=== PATIENT | male | born 1975 | race Caucasian/White ===

== ENCOUNTER 2017-02-12 05:23 | Inpatient (IN) | payer MEDICAID ==
[~2017-02-12] VITALS: Ht 175.3 cm; Wt 93.3 kg
[~2017-02-12 05:23] MED LIST: PYRI200T4 PO; SULF1TAB47 PO; Z.0.NO CURRENT MEDS
[2017-02-12] MEDS ORDERED: POVIDONE IODINE 5% (ANTISEPSIS KIT) 4 APPLICATIONS EACH NARE PRN (06:30)
[2017-02-12] MEDS ORDERED: LACTATED RINGER'S 1000 ML IV PRN (06:30)
[2017-02-12] MEDS ORDERED: CHLORHEXIDINE GLUCONATE 4% SOLN 120 ML BTL TOPICAL SCH (06:30)
[2017-02-12] MEDS ORDERED: METOPROLOL TARTRATE 25 MG TAB PO PRN (06:30)
[2017-02-12] MEDS ORDERED: CHLORHEXIDINE GLUCONATE 2 % 1 PACK (2 CLOTHS) TOPICAL PRN (06:30)
[2017-02-12] MEDS ORDERED: ceFAZolin 2 GM PREMIX 50 ML IV SCH (06:30)
[2017-02-12] MEDS ORDERED: INSULIN HUMAN REGULAR 1,000 UNITS/10 ML VIAL SQ PRN (06:30)
[2017-02-12] MEDS ORDERED: SODIUM CHLORID 0.9% 500 ML IV PRN (06:30)
[2017-02-12] MEDS ORDERED: ACETAMINOPHEN 1000 MG/100 ML 100 ML IV ONE (06:56)
[2017-02-12] MEDS ORDERED: FAMOTIDINE 20 MG/2 ML VIAL ONE (06:56)
[2017-02-12] MEDS ORDERED: GENTAMICIN SULFATE 80 MG/2 ML VIAL ONE (07:00)
[2017-02-12] MEDS ORDERED: SODIUM CHLOR 0.9% 250 ML INJ 250 ML ONE (07:16)
[2017-02-12] MEDS ORDERED: VANCOMYCIN HCL 1000 MG VIAL ONE (07:17)
[2017-02-12] MEDS ORDERED: MELA5TAB15 PO (07:19)
[2017-02-12] MEDS ORDERED: HYDR-3583 PO (07:19)
[2017-02-12] MEDS ORDERED: MILKSUS PO (07:19)
[2017-02-12] MEDS ORDERED: SENN1TAB PO (07:19)
[2017-02-12] MEDS ORDERED: XARE10TA PO (07:19)
[2017-02-12] MEDS ORDERED: BACITRACIN TOP OINT 15 GM TUBE ONE (08:31)
--- NOTE | 2017-02-12 08:41 | PD.OP ---
cc: Reynaldo Hicks MD Operative Report Date of Surgery: Feb 12, 2017 Preoperative Diagnosis: Comminuted open right calcaneus fracture Postoperative Diagnosis: Procedure: Irrigation and debridement of right foot, open reduction internal fixation right calcaneus, application wound VAC dressing Anesthesia: Gen. Surgeon: Reynaldo Hicks Early [employer] Director(s): DAHIANA Ross PA-C The surgical procedure was assisted by my physician media center assistant. My P.A. presence was necessary throughout this case for the manipulation and positioning of the surgical extremity. My P.A. was assisting me throughout the duration of this procedure. The skill set of a physician media center assistant was medically necessary to complete this procedure. During the surgical case the injection maintenance technician was working at the back table and the physician media center assistant was directly assisting me. Operation and Findings: Informed consent obtained, operative site was marked. The foot and ankle were seen and evaluated this morning. Soft tissue swelling had improved, but patient had an area of necrotic skin over the medial ankle in the middle of the traumatic laceration. He was brought to the operating room and placed on the operating room table. He was given intravenous sedation, general endotracheal anesthesia. He received IV antibiotics and was placed in the prone position. Foot and leg were prepped with alcohol, followed by Hibiclens, draped in usual sterile fashion. A time out procedure was preformed. Procedure began with debridement of the right foot. Full-thickness tissue was elevated. Skin subcutaneous tissue and fascia were sharply debrided with scalpel and rongeur. All necrotic tissue was debrided. Wound was now thoroughly irrigated with 3 L of sterile saline. Next attention was turned to the calcaneus fracture. Because of the nature of the soft tissue wound an open approach was not a viable option. Patient had severely comminuted calcaneus fracture with significant injury to the posterior facet articular surface. At this point a large Steinmann pin was placed into the talus and a second Steinmann pin was placed into the tuberosity of the calcaneus. A laminar litigation secretary was now used to distract the posterior tuberosity. A Shands pin was placed to help joystick the mold filling operator tuberosity into appropriate position. Because of the comminuted nature of the fracture as well as the severe soft tissue injury, anatomic reduction of the posterior facet is not obtainable. Multiple K-wires result provisional fixation. At this point attention was turned to internal fixation. 3 percutaneous incisions were made along the posterior fragment. 4.5 cortical screws were used. 2 screws were placed through the posterior tuberosity into the body of the talus. An additional screw was placed from the posterior tuberosity into the anterior process of the calcaneus. Fluoroscopy confirmed appropriate placement of hardware with reasonable alignment of the calcaneus. Skin was now closed with 3-0 nylon. Next attention was turned to wound VAC dressing. The open wound was covered with a VAC dressing. The wound was sealed appropriately. Patient's placed into a well molded well-padded splint. The patient was transferred to the Recovery Room in stable condition. Reynaldo Hicks MD Feb 12, 2017 08:41
--- NOTE | 2017-02-12 08:41 | PD.OP ---
cc: Reynaldo Hicks MD Operative Report Date of Surgery: Feb 12, 2017 Preoperative Diagnosis: Comminuted open right calcaneus fracture Postoperative Diagnosis: Procedure: Irrigation and debridement of right foot, open reduction internal fixation right calcaneus, application wound VAC dressing Anesthesia: Gen. Surgeon: Reynaldo Hicks [employer] Social [employer] Teacher(s): DAHIANA Ross PA-C The surgical procedure was assisted by my physician bioinformatics assistant. My P.A. presence was necessary throughout this case for the manipulation and positioning of the surgical extremity. My P.A. was assisting me throughout the duration of this procedure. The skill set of a physician bioinformatics assistant was medically necessary to complete this procedure. During the surgical case the surgical sales representative was working at the back table and the physician bioinformatics assistant was directly assisting me. Operation and Findings: Informed consent obtained, operative site was marked. The foot and ankle were seen and evaluated this morning. Soft tissue swelling had improved, but patient had an area of necrotic skin over the medial ankle in the middle of the traumatic laceration. He was brought to the operating room and placed on the operating room table. He was given intravenous sedation, general endotracheal anesthesia. He received IV antibiotics and was placed in the prone position. Foot and leg were prepped with alcohol, followed by Hibiclens, draped in usual sterile fashion. A time out procedure was preformed. Procedure began with debridement of the right foot. Full-thickness tissue was elevated. Skin subcutaneous tissue and fascia were sharply debrided with scalpel and rongeur. All necrotic tissue was debrided. Wound was now thoroughly irrigated with 3 L of sterile saline. Next attention was turned to the calcaneus fracture. Because of the nature of the soft tissue wound an open approach was not a viable option. Patient had severely comminuted calcaneus fracture with significant injury to the posterior facet articular surface. At this point a large Steinmann pin was placed into the talus and a second Steinmann pin was placed into the tuberosity of the calcaneus. A laminar sustainability purchasing agent was now used to distract the posterior tuberosity. A Shands pin was placed to help joystick the rn informatics tuberosity into appropriate position. Because of the comminuted nature of the fracture as well as the severe soft tissue injury, anatomic reduction of the posterior facet is not obtainable. Multiple K-wires result provisional fixation. At this point attention was turned to internal fixation. 3 percutaneous incisions were made along the posterior fragment. 4.5 cortical screws were used. 2 screws were placed through the posterior tuberosity into the body of the talus. An additional screw was placed from the posterior tuberosity into the anterior process of the calcaneus. Fluoroscopy confirmed appropriate placement of hardware with reasonable alignment of the calcaneus. Skin was now closed with 3-0 nylon. Next attention was turned to wound VAC dressing. The open wound was covered with a VAC dressing. The wound was sealed appropriately. Patient's placed into a well molded well-padded splint. The patient was transferred to the Recovery Room in stable condition. Reynaldo Hicks MD Feb 12, 2017 08:41
--- NOTE | 2017-02-12 08:41 | PD.OP ---
cc: Reynaldo Hicks MD Operative Report Date of Surgery: Feb 12, 2017 Preoperative Diagnosis: Comminuted open right calcaneus fracture Postoperative Diagnosis: Procedure: Irrigation and debridement of right foot, open reduction internal fixation right calcaneus, application wound VAC dressing Anesthesia: Gen. Surgeon: Reynaldo Hicks Zipper Sewing Machine Operator(s): DAHIANA Ross PA-C The surgical procedure was assisted by my physician urgent care physician assistant. My P.A. presence was necessary throughout this case for the manipulation and positioning of the surgical extremity. My P.A. was assisting me throughout the duration of this procedure. The skill set of a physician urgent care physician assistant was medically necessary to complete this procedure. During the surgical case the manager surgical was working at the back table and the physician urgent care physician assistant was directly assisting me. Operation and Findings: Informed consent obtained, operative site was marked. The foot and ankle were seen and evaluated this morning. Soft tissue swelling had improved, but patient had an area of necrotic skin over the medial ankle in the middle of the traumatic laceration. He was brought to the operating room and placed on the operating room table. He was given intravenous sedation, general endotracheal anesthesia. He received IV antibiotics and was placed in the prone position. Foot and leg were prepped with alcohol, followed by Hibiclens, draped in usual sterile fashion. A time out procedure was preformed. Procedure began with debridement of the right foot. Full-thickness tissue was elevated. Skin subcutaneous tissue and fascia were sharply debrided with scalpel and rongeur. All necrotic tissue was debrided. Wound was now thoroughly irrigated with 3 L of sterile saline. Next attention was turned to the calcaneus fracture. Because of the nature of the soft tissue wound an open approach was not a viable option. Patient had severely comminuted calcaneus fracture with significant injury to the posterior facet articular surface. At this point a large Steinmann pin was placed into the talus and a second Steinmann pin was placed into the tuberosity of the calcaneus. A laminar black top spreader machine operator was now used to distract the posterior tuberosity. A Shands pin was placed to help joystick the supervisor heading tuberosity into appropriate position. Because of the comminuted nature of the fracture as well as the severe soft tissue injury, anatomic reduction of the posterior facet is not obtainable. Multiple K-wires result provisional fixation. At this point attention was turned to internal fixation. 3 percutaneous incisions were made along the posterior fragment. 4.5 cortical screws were used. 2 screws were placed through the posterior tuberosity into the body of the talus. An additional screw was placed from the posterior tuberosity into the anterior process of the calcaneus. Fluoroscopy confirmed appropriate placement of hardware with reasonable alignment of the calcaneus. Skin was now closed with 3-0 nylon. Next attention was turned to wound VAC dressing. The open wound was covered with a VAC dressing. The wound was sealed appropriately. Patient's placed into a well molded well-padded splint. The patient was transferred to the Recovery Room in stable condition. Reynaldo Hicks MD Feb 12, 2017 08:41
[2017-02-12] MEDS ORDERED: DO NOT ADM ANY ANTICOAGULANT DRUGS PRN (09:10)
[2017-02-12] MEDS ORDERED: *HYDROmorphone PF 1 MG VIAL PERIprocedural Use ONLY ONE ×4 (09:24→11:05)
[2017-02-12] MEDS ORDERED: *MEPERIDINE 25 MG INJ VIAL PERIprocedural Use ONLY ONE (09:35)
[2017-02-12] MEDS: LACTATED RINGER'S 1000 ML INJ 1,000 ML IV SCH ×3 (10:00→20:17)
[2017-02-12] MEDS ORDERED: ROCURONIUM INJ 50 MG/5 ML SYRINGE IV PUSH ONE (12:00)
[2017-02-12] MEDS ORDERED: GLYCOPYRROLATE 1 MG/5 ML SYRINGE IV PUSH ONE (12:00)
[2017-02-12] MEDS ORDERED: LIDOCAINE HCL 1% PF 5 ML AMPULE OTHER ONE (12:00)
[2017-02-12] MEDS ORDERED: ONDANSETRON HCL 4 MG/2 ML VIAL IV PUSH ONE (12:00)
[2017-02-12] MEDS ORDERED: NEOSTIGMINE 3 MG/3 ML SYR IV ONE (12:00)
[2017-02-12] MEDS ORDERED: MIDAZOLAM HCL 2 MG/2 ML VIAL IV ONE (12:00)
--- NOTE | 2017-02-12 13:12 | RADRPT ---
EXAM DATE/TIME: 02/12/2017 08:26 [facility] COMPARISON: No previous studies available for comparison. INDICATIONS : ORIF of the right calcaneous. MEDICAL HISTORY : None. SURGICAL HISTORY : None. ENCOUNTER: Initial ACUITY: 1 day PAIN SCORE: Non-responsive. LOCATION: Right calcaneous. FINDINGS: Two view examination of the right heel demonstrate internal fixation with 3 screws in the calcaneus. There is good position and alignment of the fracture fragments.. CONCLUSION: Good position and alignment on this postoperative study. Paxton Hayes MD on February 12, 2017 at 13:10 Board Certified Radiologist. This report was verified electronically.
[2017-02-12 13:50] VITALS: BP 113/60; PULSE 71; RESP 18; TEMP 97.8; O2SAT 99
[2017-02-12] MEDS: ACETAMINOPHEN/HYDROcodone 325 MG/10 MG TAB PO PRN ×3 (14:14→21:33)
[2017-02-12] MEDS: HYDROmorphone HCL PF 1 MG/ML VIAL IV PUSH PRN ×4 (14:36→23:16)
[2017-02-12] MEDS: ceFAZolin 2 GM PREMIX 50 ML IV SCH ×2 (14:37→23:14)
[2017-02-12 19:00] VITALS: BP 135/89; PULSE 103; RESP 16; TEMP 97.6; O2SAT 100
[2017-02-12] MEDS ORDERED: VANCOMYCIN INJ 1,000 MG in SODIUM CHLOR 0.9% 250 ML INJ 250 ML IV SCH (20:00)
[2017-02-13] VITALS: BP 114/56; PULSE 109; RESP 16; TEMP 100.9; O2SAT 97
[2017-02-13] MEDS: ACETAMINOPHEN/HYDROcodone 325 MG/10 MG TAB PO PRN ×7 (01:09→22:01)
[2017-02-13] MEDS: HYDROmorphone HCL PF 1 MG/ML VIAL IV PUSH PRN ×4 (02:17→16:56)
[2017-02-13 04:00] VITALS: BP 123/60; PULSE 101; RESP 17; TEMP 98.1; O2SAT 98
[2017-02-13 08:00] VITALS: BP 116/65; PULSE 102; RESP 18; TEMP 99.2; O2SAT 98
[2017-02-13] MEDS: ENOXAPARIN SODIUM 40 MG/0.4 ML SYRINGE SQ SCH (08:42)
[2017-02-13] MEDS: ceFAZolin 2 GM PREMIX 50 ML IV SCH ×3 (08:42→22:57)
--- NOTE | 2017-02-13 09:32 | PD.ORT.PN ---
Subjective Subjective Remarks Resting comfortably with no new complaints Objective Vitals Vital Signs Date Time Temp Pulse Resp B/P (MAP) Pulse Ox O2 Delivery O2 Flow Rate FiO2 02/13/17 04:00 98.1 101 17 123/60 (81) 98 02/13/17 00:00 100.9 109 16 114/56 (75) 97 02/12/17 19:00 97.6 103 16 135/89 (104) 100 02/12/17 13:50 97.8 71 18 113/60 (77) 99 02/12/17 13:00 97.9 76 12 102/68 (79) 94 Room Air 02/12/17 12:00 77 15 112/64 (80) 96 Room Air 02/12/17 11:00 72 17 113/63 (80) 95 Nasal Cannula 2 02/12/17 10:15 68 16 118/61 (80) 96 Nasal Cannula 2 02/12/17 10:00 64 16 125/67 (86) 94 Nasal Cannula 2 02/12/17 09:45 68 16 128/73 (91) 97 Room Air 02/12/17 09:30 83 30 131/83 (99) 100 Room Air I/O 02/12/17 02/12/17 02/12/17 02/13/17 02/13/17 02/13/17 07:00 15:00 23:00 07:00 15:00 23:00 Intake Total 1266 ml 730 ml 300 ml Output Total 30 ml 925 ml 660 ml Balance 1236 ml -195 ml -360 ml Intake Oral 100 ml 480 ml 250 ml IV Total 266 ml 250 ml 50 ml Other 900 ml Output Urine Total 900 ml 650 ml Drainage Total 25 ml 10 ml Estimated Blood Loss 30 ml # Voids 0 # Bowel Movements 0 0 Imaging Last 72 hours Impressions Foot X-Ray 02/12/17 0000 Signed Impressions: Service Date/Time: January 08:26 - CONCLUSION: Good position and alignment on this postoperative study. Paxton Hayes MD Objective Remarks Right lower extremity: Healing incisions over femur. Short leg posterior and stirrup splint with wound VAC in place. Appropriate wound VAC seal. Intact sensation in all toes. Is able move toes appropriately Assessment & Plan Assessment and Plan Previous intramedullary shilpi fixation of right femur and right medial malleolus Severely comminuted calcaneus with subtalar screw fixation and debridement of necrosis skin due to traumatic open injury over medial ankle with wound VAC application Nonweightbearing right lower extremity Maintain elevation Maintain wound VAC We will plan on taking wound VAC down on Thursday to evaluate tissue. He will be nothing by mouth after midnight on Thursday night. If further debridement as necessary we will plan on surgery Thursday. Otherwise we will apply wound VAC and splint at that time bedside. Incentive spirometry Jt Reza Jr. Feb 13, 2017 09:32
[2017-02-13 12:00] VITALS: BP 105/52; PULSE 100; RESP 18; TEMP 98.3; O2SAT 98
[2017-02-13] MEDS: LACTATED RINGER'S 1000 ML INJ 1,000 ML IV SCH ×2 (14:31→23:25)
[2017-02-13 16:00] VITALS: BP 129/63; PULSE 103; RESP 18; TEMP 99.8; O2SAT 100
[2017-02-13] MEDS: HYDROmorphone HCL PF 2 MG/ML VIAL IV PRN ×2 (19:48→22:57)
[2017-02-13 20:25] VITALS: BP 106/68; PULSE 105; RESP 18; TEMP 99.3; O2SAT 99
[2017-02-13] MEDS ORDERED: CALCIUM CARBONATE 500 MG CHEWABLE TAB CHEW PRN (22:30)
[2017-02-14] VITALS (7 sets, daily range): BP systolic 102–119; BP diastolic 53–66; PULSE 98–113; RESP 16–19; TEMP 98.2–99.4; O2SAT 95–97
[2017-02-14] MEDS: ACETAMINOPHEN/HYDROcodone 325 MG/10 MG TAB PO PRN ×6 (01:14→21:38)
[2017-02-14] MEDS: HYDROmorphone HCL PF 2 MG/ML VIAL IV PRN ×6 (02:01→22:52)
--- NOTE | 2017-02-14 08:38 | PD.ORT.PN ---
Subjective Post Op Day #: 2 Subjective Remarks painful but controlled. Objective Vitals Vital Signs Date Time Temp Pulse Resp B/P (MAP) Pulse Ox O2 Delivery O2 Flow Rate FiO2 02/14/17 00:00 99.4 100 16 108/53 (71) 95 02/13/17 20:25 99.3 105 18 106/68 (81) 99 02/13/17 16:00 99.8 103 18 129/63 (85) 100 02/13/17 12:00 98.3 100 18 105/52 (69) 98 I/O 02/13/17 02/13/17 02/13/17 02/14/17 02/14/17 02/14/17 07:00 15:00 23:00 07:00 15:00 23:00 Intake Total 300 ml 480 ml 360 ml 290 ml Output Total 660 ml 430 ml 300 ml Balance -360 ml 480 ml -70 ml -10 ml Intake Oral 250 ml 480 ml 360 ml 240 ml IV Total 50 ml 50 ml Output Urine Total 650 ml 400 ml 300 ml Drainage Total 10 ml 30 ml 0 ml # Voids 4 # Bowel Movements 0 0 0 0 Imaging Last 72 hours Impressions Foot X-Ray 02/12/17 0000 Signed Impressions: Service Date/Time: January 08:26 - CONCLUSION: Good position and alignment on this postoperative study. Paxton Hayes MD Objective Remarks Right lower extremity: Healing incisions over femur. Short leg posterior and stirrup splint with wound VAC in place. Appropriate wound VAC seal. Intact sensation in all toes. Is able move toes appropriately Assessment & Plan Ortho Post Op Day #: 2 Problem List: Assessment and Plan Previous intramedullary shilpi fixation of right femur and right medial malleolus Severely comminuted calcaneus with subtalar screw fixation and debridement of necrosis skin due to traumatic open injury over medial ankle with wound VAC application Nonweightbearing right lower extremity Maintain elevation Maintain wound VAC We will plan on taking wound VAC down on Thursday to evaluate tissue. He will be nothing by mouth after midnight on Thursday night. If further debridement as necessary we will plan on surgery Thursday. Otherwise we will apply wound VAC and splint at that time bedside. Discussed plan with patient. Incentive spirometry Milad Ceron Feb 14, 2017 08:38
[2017-02-14] MEDS: ceFAZolin 2 GM PREMIX 50 ML IV SCH ×3 (09:29→22:53)
[2017-02-14] MEDS: ENOXAPARIN SODIUM 40 MG/0.4 ML SYRINGE SQ SCH (09:29)
[2017-02-14] MEDS: LACTATED RINGER'S 1000 ML INJ 1,000 ML IV SCH ×2 (10:31→20:31)
[2017-02-15] MEDS: ACETAMINOPHEN/HYDROcodone 325 MG/10 MG TAB PO PRN ×5 (00:58→21:11)
[2017-02-15] MEDS: LACTATED RINGER'S 1000 ML INJ 1,000 ML IV SCH ×2 (03:54→16:31)
[2017-02-15] MEDS: HYDROmorphone HCL PF 2 MG/ML VIAL IV PRN ×4 (04:26→23:27)
--- NOTE | 2017-02-15 07:36 | PD.ORT.PN ---
Subjective Subjective Remarks Patient doing well this morning. Patient states his pain is relatively well controlled at present. He states his rash is improving. Objective Vitals Vital Signs Date Time Temp Pulse Resp B/P (MAP) Pulse Ox O2 Delivery O2 Flow Rate FiO2 02/15/17 04:44 18 02/15/17 02:01 18 02/15/17 01:56 Room Air 02/14/17 23:15 99.4 104 17 105/63 (77) 97 02/14/17 20:10 99.4 98 17 119/56 (77) 97 02/14/17 16:00 99.3 100 19 109/56 (73) 97 02/14/17 12:00 98.2 113 18 110/66 (81) 96 02/14/17 10:35 95 21 02/14/17 08:00 98.9 99 19 102/54 (70) 96 I/O 02/14/17 02/14/17 02/14/17 02/15/17 02/15/17 02/15/17 07:00 15:00 23:00 07:00 15:00 23:00 Intake Total 290 ml 720 ml 530 ml Output Total 300 ml 25 ml 650 ml 750 ml Balance -10 ml -25 ml 70 ml -220 ml Intake Oral 240 ml 720 ml 480 ml IV Total 50 ml 50 ml Output Urine Total 300 ml 650 ml 750 ml Drainage Total 0 ml 25 ml 0 ml 0 ml # Voids 3 # Bowel Movements 0 0 0 Imaging Last 72 hours Impressions Foot X-Ray 02/12/17 0000 Signed Impressions: Service Date/Time: January 08:26 - CONCLUSION: Good position and alignment on this postoperative study. Paxton Hayes MD Objective Remarks Patient does have extensive rash over her entire body, reportedly improving per patient Right lower extremity: Healing incisions over femur. Short leg posterior and stirrup splint with wound VAC in place. Appropriate wound VAC seal. Intact sensation in all toes. Is able move toes appropriately. Brisk cap refill Assessment & Plan Assessment and Plan Previous intramedullary shilpi fixation of right femur and right medial malleolus Severely comminuted calcaneus with subtalar screw fixation and debridement of necrosis skin due to traumatic open injury over medial ankle with wound VAC application Nonweightbearing right lower extremity Maintain elevation Maintain wound VAC We will plan on taking wound VAC down on Thursday to evaluate tissue. He will be nothing by mouth after midnight on Thursday night. If further debridement as necessary we will plan on surgery Thursday. Otherwise we will apply wound VAC and splint at that time bedside. Discussed plan with patient. Incentive spirometry Lizabeth Chaney MD Feb 15, 2017 07:36
[2017-02-15 08:00] VITALS: BP 126/58; PULSE 102; RESP 18; TEMP 99.5; O2SAT 97
[2017-02-15] MEDS: ENOXAPARIN SODIUM 40 MG/0.4 ML SYRINGE SQ SCH (08:15)
[2017-02-15] MEDS: ceFAZolin 2 GM PREMIX 50 ML IV SCH ×2 (08:15→16:10)
[2017-02-15 16:00] VITALS: BP 126/61; PULSE 96; RESP 18; TEMP 98.6; O2SAT 100
[2017-02-15] MEDS: MAGNESIUM HYDROXIDE SUSP 30 ML CUP PO PRN (16:10)
[2017-02-15 19:50] VITALS: BP 116/59; PULSE 98; RESP 17; TEMP 98.2; O2SAT 97
[2017-02-15] MEDS ORDERED: SODIUM CHLORID 0.9% 500 ML IV PRN (23:45)
[2017-02-15] MEDS ORDERED: POVIDONE IODINE 5% (ANTISEPSIS KIT) 4 APPLICATIONS EACH NARE PRN (23:45)
[2017-02-15] MEDS ORDERED: INSULIN HUMAN REGULAR 1,000 UNITS/10 ML VIAL SQ PRN (23:45)
[2017-02-15] MEDS ORDERED: CHLORHEXIDINE GLUCONATE 2 % 1 PACK (2 CLOTHS) TOPICAL PRN (23:45)
[2017-02-15] MEDS ORDERED: LACTATED RINGER'S 1000 ML IV PRN (23:45)
[2017-02-15 23:50] VITALS: BP 112/59; PULSE 96; RESP 17; TEMP 98.1; O2SAT 99
[2017-02-16] MEDS: ceFAZolin 2 GM PREMIX 50 ML IV SCH ×2 (00:07→08:16)
[2017-02-16] MEDS: LACTATED RINGER'S 1000 ML INJ 1,000 ML IV SCH (00:09)
[2017-02-16] MEDS: ACETAMINOPHEN/HYDROcodone 325 MG/10 MG TAB PO PRN ×3 (02:23→11:29)
[2017-02-16 03:40] VITALS: BP 113/56; PULSE 79; RESP 16; TEMP 98; O2SAT 94
[2017-02-16] MEDS: HYDROmorphone HCL PF 2 MG/ML VIAL IV PRN ×3 (03:55→20:16)
[2017-02-16 07:05] LABS: AUTOMATED NEUTROPHIL # 4.2 TH/MM3 (1.8-7.7); BASOPHIL # 0.1 TH/MM3 (0-0.2); BASOPHIL % 0.9 % (0.0-2.0); EOSINOPHIL # 0.2 TH/MM3 (0-0.4); EOSINOPHIL % 2.6 % (0.0-4.0); HEMATOCRIT 31.1 % (39.0-51.0); HEMOGLOBIN 10.2 GM/DL (13.0-17.0); LYMPH % 22.3 % (9.0-44.0); LYMPHOCYTE # 1.5 TH/MM3 (1.0-4.8); MEAN CELL VOLUME 88.6 FL (80.0-100.0); MEAN CORPUSCULAR HEMOGLOBIN 29.1 PG (27.0-34.0); MEAN CORPUSCULAR HGB CONC 32.9 % (32.0-36.0); MEAN PLATELET VOLUME 7.9 FL (7.0-11.0); MONOCYTE # 0.7 TH/MM3 (0-0.9); NEUT % 64.2 % (16.0-70.0); PLATELET COUNT 278 TH/MM3 (150-450); RED BLOOD COUNT 3.51 MIL/MM3 (4.50-5.90); RED CELL DISTRIBUTION WIDTH 15.3 % (11.6-17.2); WHITE BLOOD COUNT 6.5 TH/MM3 (4.0-11.0)
[2017-02-16 07:09] LABS: PROTHROMBIN TIME - PATIENT 11.6 SEC (9.8-11.6)
[2017-02-16 08:00] VITALS: BP 124/55; PULSE 88; RESP 18; TEMP 98; O2SAT 99
[2017-02-16] MEDS: ENOXAPARIN SODIUM 40 MG/0.4 ML SYRINGE SQ SCH (08:15)
[2017-02-16] MEDS: MAGNESIUM HYDROXIDE SUSP 30 ML CUP PO PRN (08:31)
--- NOTE | 2017-02-16 11:58 | PD.ORT.PN ---
Subjective Subjective Remarks POd 4 s/p I&D with orif right calcaneus and vac application doing well. states fuad is not doing well controlling his pain. also reports significant rash over his entire body. reports its itchy and his skin is flaking off. Vanc has been stopped Objective Vitals Vital Signs Date Time Temp Pulse Resp B/P (MAP) Pulse Ox O2 Delivery O2 Flow Rate FiO2 02/16/17 08:00 98.0 88 18 124/55 (78) 99 02/16/17 03:40 98.0 79 16 113/56 (75) 94 02/15/17 23:50 98.1 96 17 112/59 (76) 99 02/15/17 19:50 98.2 98 17 116/59 (78) 97 02/15/17 16:00 98.6 96 18 126/61 (82) 100 I/O 02/15/17 02/15/17 02/15/17 02/16/17 02/16/17 02/16/17 07:00 15:00 23:00 07:00 15:00 23:00 Intake Total 530 ml 960 ml 240 ml 290 ml Output Total 750 ml 350 ml 300 ml Balance -220 ml 960 ml -110 ml -10 ml Intake Oral 480 ml 960 ml 240 ml 240 ml IV Total 50 ml 50 ml Output Urine Total 750 ml 350 ml 300 ml Drainage Total 0 ml 0 ml 0 ml # Voids 5 # Bowel Movements 0 0 0 0 Result Diagram: 02/16/17 0505 Other Results Laboratory Tests Test 02/16/17 05:05 Prothromb Time International Ratio 1.0 RATIO Prothrombin Time 11.6 SEC (9.8-11.6) Imaging Last 72 hours Impressions Foot X-Ray 02/12/17 0000 Signed Impressions: Service Date/Time: January 08:26 - CONCLUSION: Good position and alignment on this postoperative study. Paxton Hayes MD Objective Remarks extensive erythemetous rash over entire body. noted skin flaking RLE: +short leg splint. intact. removed and vac removed. wound visualized. clean , dry, +granulation tissue. Assessment & Plan Assessment and Plan Previous intramedullary shilpi fixation of right femur and right medial malleolus Severely comminuted calcaneus with subtalar screw fixation and debridement of necrosis skin due to traumatic open injury over medial ankle with wound VAC application Nonweightbearing right lower extremity Maintain elevation Maintain wound VAC - replaced today at bedside we cecil plan to take it down and potential skin grafting thursday. Incentive spirometry will consult hospitalist for Kishan Clement Feb 16, 2017 11:58
[2017-02-16 12:00] VITALS: BP 116/56; PULSE 84; RESP 19; TEMP 97.4; O2SAT 100
[2017-02-16] MEDS ORDERED: hydrOXYzine PAMOATE 25 MG CAP PO PRN (12:15)
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
[2017-02-16] MEDS: diphenhydrAMINE HCL 25 MG CAP PO PRN ×2 (15:00→21:10)
[2017-02-16 16:00] VITALS: BP 144/77; PULSE 77; RESP 17; TEMP 97.9; O2SAT 96
[2017-02-16] MEDS: oxyCODONE/ACETAMINOPHEN 10 MG/325 MG TAB PO PRN (19:17)
[2017-02-16] MEDS: CALAMINE LOTION 180 APPLIC/180 ML BTL TOPICAL PRN (19:18)
[2017-02-16 20:00] VITALS: BP 128/62; PULSE 97; RESP 17; TEMP 99.4; O2SAT 100
[2017-02-16] MEDS ORDERED: DOCUSATE SODIUM 50 MG/SENNA 8.6 MG TAB PO SCH (21:00)
[2017-02-16] MEDS: MELATONIN 5 MG TAB PO SCH (21:09)
[2017-02-17] MEDS: oxyCODONE/ACETAMINOPHEN 10 MG/325 MG TAB PO PRN ×5 (00:28→22:42)
[2017-02-17 01:04] VITALS: BP 124/57; PULSE 88; RESP 16; TEMP 98.3; O2SAT 95
[2017-02-17] MEDS: diphenhydrAMINE HCL 25 MG CAP PO PRN ×4 (03:09→22:43)
[2017-02-17] MEDS: HYDROmorphone HCL PF 2 MG/ML VIAL IV PRN ×5 (03:15→23:55)
[2017-02-17 08:00] VITALS: BP 115/67; PULSE 90; RESP 18; TEMP 97.6; O2SAT 99
[2017-02-17] MEDS: DOCUSATE SODIUM 50 MG/SENNA 8.6 MG TAB PO SCH (08:12)
[2017-02-17] MEDS: ENOXAPARIN SODIUM 40 MG/0.4 ML SYRINGE SQ SCH (08:12)
[2017-02-17 12:00] VITALS: BP 121/66; PULSE 92; RESP 18; TEMP 96.9; O2SAT 97
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
[2017-02-17 15:50] VITALS: BP 129/64; PULSE 90; RESP 17; TEMP 98.1; O2SAT 96
[2017-02-17 18:45] VITALS: BP 119/59; PULSE 86; RESP 16; TEMP 98.5; O2SAT 98
[2017-02-17 20:45] VITALS: BP 112/57; PULSE 84; RESP 18; TEMP 98.1; O2SAT 98
[2017-02-17] MEDS: MELATONIN 5 MG TAB PO SCH (21:00)
[2017-02-18 00:10] VITALS: BP 128/59; PULSE 86; RESP 16; TEMP 98.7; O2SAT 95
[2017-02-18] MEDS: oxyCODONE/ACETAMINOPHEN 10 MG/325 MG TAB PO PRN ×4 (04:34→20:07)
--- NOTE | 2017-02-18 06:38 | PD.ORT.PN ---
Subjective Subjective Remarks POD 6 s/p I&D with orif right calcaneus and vac application doing well. improving. Objective Vitals Vital Signs Date Time Temp Pulse Resp B/P (MAP) Pulse Ox O2 Delivery O2 Flow Rate FiO2 02/18/17 00:10 98.7 86 16 128/59 (82) 95 02/17/17 20:45 98.1 84 18 112/57 (75) 98 02/17/17 18:45 98.5 86 16 119/59 (79) 98 02/17/17 15:50 98.1 90 17 129/64 (85) 96 02/17/17 12:00 96.9 92 18 121/66 (84) 97 02/17/17 08:00 97.6 90 18 115/67 (83) 99 I/O 02/17/17 02/17/17 02/17/17 02/18/17 02/18/17 02/18/17 07:00 15:00 23:00 07:00 15:00 23:00 Intake Total 240 ml 600 ml 360 ml Output Total 0 ml 0 ml 0 ml Balance 240 ml 600 ml 360 ml 0 ml Intake Oral 240 ml 600 ml 360 ml Drainage Total 0 ml 0 ml 0 ml # Voids 2 2 2 # Bowel Movements 0 0 0 Result Diagram: 02/16/17 0505 Imaging Last 72 hours Impressions Foot X-Ray 02/12/17 0000 Signed Impressions: Service Date/Time: January 08:26 - CONCLUSION: Good position and alignment on this postoperative study. Paxton Hayes MD Objective Remarks extensive erythemetous rash over entire body. noted skin flaking RLE: +short leg splint. intact. removed and vac removed. wound visualized. clean , dry, +granulation tissue. Assessment & Plan Assessment and Plan 1) Previous intramedullary shilpi fixation of right femur and right medial malleolus 2) Severely comminuted calcaneus with subtalar screw fixation and debridement of necrosis skin due to traumatic open injury over medial ankle with wound VAC application Nonweightbearing right lower extremity Maintain elevation Maintain wound VAC we cecil plan to take it down and potential skin grafting thursday. Incentive spirometry will consult hospitalist for Kishan Clement Feb 18, 2017 06:38
[2017-02-18 07:57] LABS: AUTOMATED NEUTROPHIL # 2.9 TH/MM3 (1.8-7.7); BASOPHIL % 0.7 % (0.0-2.0); EOSINOPHIL # 0.1 TH/MM3 (0-0.4); EOSINOPHIL % 3.1 % (0.0-4.0); HEMATOCRIT 29.6 % (39.0-51.0); HEMOGLOBIN 9.9 GM/DL (13.0-17.0); LYMPH % 21.1 % (9.0-44.0); MEAN CELL VOLUME 87.6 FL (80.0-100.0); MEAN CORPUSCULAR HEMOGLOBIN 29.3 PG (27.0-34.0); MEAN CORPUSCULAR HGB CONC 33.4 % (32.0-36.0); MEAN PLATELET VOLUME 7.4 FL (7.0-11.0); MONO % 13.1 % (0.0-8.0); MONOCYTE # 0.6 TH/MM3 (0-0.9); PLATELET COUNT 275 TH/MM3 (150-450); RED BLOOD COUNT 3.38 MIL/MM3 (4.50-5.90); RED CELL DISTRIBUTION WIDTH 14.8 % (11.6-17.2); WHITE BLOOD COUNT 4.6 TH/MM3 (4.0-11.0)
[2017-02-18 08:00] VITALS: BP 127/70; PULSE 89; RESP 17; TEMP 95.5; O2SAT 98
[2017-02-18] MEDS: ENOXAPARIN SODIUM 40 MG/0.4 ML SYRINGE SQ SCH (08:11)
[2017-02-18] MEDS: DOCUSATE SODIUM 50 MG/SENNA 8.6 MG TAB PO SCH (08:11)
[2017-02-18 08:26] LABS: BICARBONATE 28.2 MEQ/L (21.0-32.0); CALCIUM 9.1 MG/DL (8.5-10.1); CREATININE 0.92 MG/DL (0.60-1.30); MAGNESIUM 1.9 MG/DL (1.5-2.5)
[2017-02-18] MEDS ORDERED: POTASSIUM CHLORIDE 10 MEQ CONTROLLED RELEASE TAB PO ONE (10:00)
[2017-02-18] MEDS ORDERED: POTASSIUM CHLORIDE 20 MEQ CONTROLLED RELEASE TAB PO ONE (10:00)
[2017-02-18] MEDS: HYDROmorphone HCL PF 2 MG/ML VIAL IV PRN ×2 (10:41→21:18)
[2017-02-18 12:00] VITALS: BP 132/63; PULSE 115; RESP 19; TEMP 96.3; O2SAT 96
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
[2017-02-18] MEDS: diphenhydrAMINE HCL 25 MG CAP PO PRN ×2 (14:54→21:16)
[2017-02-18 16:00] VITALS: BP 112/56; PULSE 89; RESP 16; TEMP 98.8; O2SAT 95
[2017-02-18 19:00] VITALS: BP 112/56; PULSE 89; RESP 16; TEMP 98.8
[2017-02-18] MEDS: MELATONIN 5 MG TAB PO SCH (21:16)
[2017-02-18] MEDS ORDERED: METOPROLOL TARTRATE 25 MG TAB PO PRN (22:45)
[2017-02-18] MEDS ORDERED: INSULIN HUMAN REGULAR 1,000 UNITS/10 ML VIAL SQ PRN (22:45)
[2017-02-18] MEDS ORDERED: POVIDONE IODINE 5% (ANTISEPSIS KIT) 4 APPLICATIONS EACH NARE PRN (22:45)
[2017-02-18] MEDS ORDERED: LACTATED RINGER'S 1000 ML IV PRN (22:45)
[2017-02-18] MEDS ORDERED: CHLORHEXIDINE GLUCONATE 2 % 1 PACK (2 CLOTHS) TOPICAL PRN (22:45)
[2017-02-18] MEDS ORDERED: SODIUM CHLORID 0.9% 500 ML IV PRN (22:45)
[2017-02-19] VITALS (7 sets, daily range): BP systolic 108–122; BP diastolic 52–75; PULSE 76–96; RESP 16–19; TEMP 96.7–98.4; O2SAT 95–99
[2017-02-19] MEDS: HYDROmorphone HCL PF 2 MG/ML VIAL IV PRN ×6 (01:29→21:14)
[2017-02-19] MEDS ORDERED: LIDOCAINE 2% JELLY 30 ML TUBE ONE (06:51)
[2017-02-19] MEDS ORDERED: VANCOMYCIN HCL 1000 MG VIAL ONE (06:51)
[2017-02-19] MEDS ORDERED: GENTAMICIN SULFATE 80 MG/2 ML VIAL ONE (06:52)
[2017-02-19] MEDS ORDERED: MINERAL OIL 10 ML VIAL ONE (06:52)
[2017-02-19] MEDS ORDERED: SODIUM CHLOR 0.9% 250 ML INJ 0 ML ONE (06:52)
--- NOTE | 2017-02-19 06:59 | PD.ORT.PN ---
Subjective Subjective Remarks POD 7 s/p I&D with orif right calcaneus and vac application doing well. improving. Objective Vitals Vital Signs Date Time Temp Pulse Resp B/P (MAP) Pulse Ox O2 Delivery O2 Flow Rate FiO2 02/19/17 04:22 98.3 81 16 121/60 (80) 97 02/19/17 00:40 98.1 78 16 116/68 (84) 98 02/18/17 19:22 Room Air 02/18/17 19:00 98.8 89 16 112/56 (74) 02/18/17 16:00 98.8 89 16 112/56 (74) 95 02/18/17 12:00 96.3 115 19 132/63 (86) 96 02/18/17 08:00 95.5 89 17 127/70 (89) 98 I/O 02/18/17 02/18/17 02/18/17 02/19/17 02/19/17 02/19/17 07:00 15:00 23:00 07:00 15:00 23:00 Intake Total 240 ml 720 ml 360 ml Output Total 0 ml 400 ml 50 ml Balance 240 ml 720 ml -40 ml -50 ml Intake Oral 240 ml 720 ml 360 ml Output Urine Total 400 ml Drainage Total 0 ml 50 ml # Voids 2 4 # Bowel Movements 0 0 0 Result Diagram: 02/18/17 0653 02/18/17 0653 Imaging Last 72 hours Impressions Foot X-Ray 02/12/17 0000 Signed Impressions: Service Date/Time: January 08:26 - CONCLUSION: Good position and alignment on this postoperative study. Paxton Hayes MD Objective Remarks extensive erythemetous rash over entire body. noted skin flaking RLE: +short leg splint. intact. removed and vac removed. wound visualized. clean , dry, +granulation tissue. Assessment & Plan Assessment and Plan 1) Previous intramedullary shilpi fixation of right femur and right medial malleolus 2) Severely comminuted calcaneus with subtalar screw fixation and debridement of necrosis skin due to traumatic open injury over medial ankle with wound VAC application Nonweightbearing right lower extremity surgery today for possible STSG vs I&D Kishan Palafox Feb 19, 2017 06:59
--- NOTE | 2017-02-19 07:53 | PD.OP ---
cc: Reynaldo Hicks MD Operative Report Date of Surgery: Feb 19, 2017 Preoperative Diagnosis: Open wound right foot from open calcaneus fracture Postoperative Diagnosis: Procedure: Irrigation debridement right foot, split-thickness skin graft right foot Anesthesia: Gen. Surgeon: Reynaldo Hicks Head Waiter(s): DAHIANA Landa PA-C The surgical procedure was assisted by my physician visitor service assistant. My P.A. presence was necessary throughout this case for the manipulation and positioning of the surgical extremity. My P.A. was assisting me throughout the duration of this procedure. The skill set of a physician visitor service assistant was medically necessary to complete this procedure. During the surgical case the surgical resident was working at the back table and the physician visitor service assistant was directly assisting me. Operation and Findings: Patient brought to operating room and given IV sedation and general anesthesia. Timeout procedure was performed. IV antibiotics were administered. The right lower extremity was prepped with alcohol followed by Hibiclens and draped in usual sterile fashion. Procedure began with irrigation and debridement of the open wound. Skin subcutaneous tissue and fascia were sharply debrided. Overall the wound was healthy. There was good granulation tissue forming. Wound was now thoroughly irrigated with sterile saline. Next was turned to skin grafting. Using the Elías dermatome set at 0.015 skin graft was obtained from the thigh. Skin graft was now meshed at a ratio of 1- 1.5. The skin graft was now placed over the open wound. Skin graft was stapled into position. The open wound was completely covered. Skin graft was now covered with Xeroform. A VAC dressing was cut to fit over the wound. VAC dressing was sealed appropriately. A compressive dressing was applied. VAC dressing was set on continuous. Patient was awakened and transferred to recovery in stable condition. Reynaldo Hicks MD Feb 19, 2017 07:53
--- NOTE | 2017-02-19 07:53 | PD.OP ---
cc: Reynaldo Hicks MD Operative Report Date of Surgery: Feb 19, 2017 Preoperative Diagnosis: Open wound right foot from open calcaneus fracture Postoperative Diagnosis: Procedure: Irrigation debridement right foot, split-thickness skin graft right foot Anesthesia: Gen. Surgeon: Reynaldo Hicks Supervisor Instrument Maintenance(s): DAHIANA Landa PA-C The surgical procedure was assisted by my physician assistant professor of psychology. My P.A. presence was necessary throughout this case for the manipulation and positioning of the surgical extremity. My P.A. was assisting me throughout the duration of this procedure. The skill set of a physician assistant professor of psychology was medically necessary to complete this procedure. During the surgical case the surgical aide was working at the back table and the physician assistant professor of psychology was directly assisting me. Operation and Findings: Patient brought to operating room and given IV sedation and general anesthesia. Timeout procedure was performed. IV antibiotics were administered. The right lower extremity was prepped with alcohol followed by Hibiclens and draped in usual sterile fashion. Procedure began with irrigation and debridement of the open wound. Skin subcutaneous tissue and fascia were sharply debrided. Overall the wound was healthy. There was good granulation tissue forming. Wound was now thoroughly irrigated with sterile saline. Next was turned to skin grafting. Using the Elías dermatome set at 0.015 skin graft was obtained from the thigh. Skin graft was now meshed at a ratio of 1- 1.5. The skin graft was now placed over the open wound. Skin graft was stapled into position. The open wound was completely covered. Skin graft was now covered with Xeroform. A VAC dressing was cut to fit over the wound. VAC dressing was sealed appropriately. A compressive dressing was applied. VAC dressing was set on continuous. Patient was awakened and transferred to recovery in stable condition. Reynaldo Hicks MD Feb 19, 2017 07:53
--- NOTE | 2017-02-19 07:53 | PD.OP ---
cc: Reynaldo Hicks MD Operative Report Date of Surgery: Feb 19, 2017 Preoperative Diagnosis: Open wound right foot from open calcaneus fracture Postoperative Diagnosis: Procedure: Irrigation debridement right foot, split-thickness skin graft right foot Anesthesia: Gen. Surgeon: Reynaldo Hicks Clinic Assistant(s): DAHIANA Landa PA-C The surgical procedure was assisted by my physician assistant grocery store manager. My P.A. presence was necessary throughout this case for the manipulation and positioning of the surgical extremity. My P.A. was assisting me throughout the duration of this procedure. The skill set of a physician assistant grocery store manager was medically necessary to complete this procedure. During the surgical case the nursing surgical services director was working at the back table and the physician assistant grocery store manager was directly assisting me. Operation and Findings: Patient brought to operating room and given IV sedation and general anesthesia. Timeout procedure was performed. IV antibiotics were administered. The right lower extremity was prepped with alcohol followed by Hibiclens and draped in usual sterile fashion. Procedure began with irrigation and debridement of the open wound. Skin subcutaneous tissue and fascia were sharply debrided. Overall the wound was healthy. There was good granulation tissue forming. Wound was now thoroughly irrigated with sterile saline. Next was turned to skin grafting. Using the Elías dermatome set at 0.015 skin graft was obtained from the thigh. Skin graft was now meshed at a ratio of 1- 1.5. The skin graft was now placed over the open wound. Skin graft was stapled into position. The open wound was completely covered. Skin graft was now covered with Xeroform. A VAC dressing was cut to fit over the wound. VAC dressing was sealed appropriately. A compressive dressing was applied. VAC dressing was set on continuous. Patient was awakened and transferred to recovery in stable condition. Reynaldo Hicks MD Feb 19, 2017 07:53
[2017-02-19] MEDS: ENOXAPARIN SODIUM 40 MG/0.4 ML SYRINGE SQ SCH (08:00)
[2017-02-19] MEDS ORDERED: DO NOT ADM ANY ANTICOAGULANT DRUGS PRN (08:10)
[2017-02-19] MEDS ORDERED: HYDROmorphone HCL PF 2 MG/ML VIAL ONE (08:23)
[2017-02-19] MEDS: DOCUSATE SODIUM 50 MG/SENNA 8.6 MG TAB PO SCH (09:56)
[2017-02-19] MEDS ORDERED: MIDAZOLAM HCL 2 MG/2 ML VIAL IV ONE (12:00)
[2017-02-19] MEDS ORDERED: LIDOCAINE HCL 1% PF 5 ML AMPULE OTHER ONE (12:00)
[2017-02-19] MEDS ORDERED: ONDANSETRON HCL 4 MG/2 ML VIAL IV PUSH ONE (12:00)
[2017-02-19] MEDS ORDERED: PROPOFOL 200 MG/20 ML AMP IV ONE (12:00)
[2017-02-19] MEDS: diphenhydrAMINE HCL 25 MG CAP PO PRN ×3 (12:11→23:57)
[2017-02-19] MEDS: oxyCODONE/ACETAMINOPHEN 10 MG/325 MG TAB PO PRN ×4 (12:11→23:58)
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
[2017-02-19] MEDS: MELATONIN 5 MG TAB PO SCH (20:05)
[2017-02-20] MEDS: HYDROmorphone HCL PF 2 MG/ML VIAL IV PRN ×6 (01:34→22:19)
[2017-02-20 03:30] VITALS: BP 117/53; PULSE 84; RESP 19; TEMP 97.7; O2SAT 96
[2017-02-20] MEDS: oxyCODONE/ACETAMINOPHEN 10 MG/325 MG TAB PO PRN ×4 (04:35→20:54)
[2017-02-20] MEDS: diphenhydrAMINE HCL 25 MG CAP PO PRN ×4 (06:08→23:50)
--- NOTE | 2017-02-20 06:53 | PD.ORT.PN ---
Subjective Subjective Remarks POD 8 s/p I&D with orif right calcaneus and vac application POD 1 s/p STSG right calcaneus doing well. no complaints. reports feels good and happy with progress Objective Vitals Vital Signs Date Time Temp Pulse Resp B/P (MAP) Pulse Ox O2 Delivery O2 Flow Rate FiO2 02/20/17 03:30 97.7 84 19 117/53 (74) 96 02/19/17 23:04 96.7 76 18 117/59 (78) 95 02/19/17 20:00 98 Room Air 02/19/17 19:27 96.7 84 19 108/52 (70) 98 02/19/17 15:00 98.4 96 18 110/61 (77) 97 02/19/17 12:00 97.4 81 18 122/75 (91) 99 02/19/17 09:20 97.5 80 16 109/64 (79) 99 02/19/17 08:45 85 16 121/66 (84) 98 Nasal Cannula 2 02/19/17 08:30 83 16 114/66 (82) 100 Nasal Cannula 2 02/19/17 08:15 89 18 117/68 (84) 96 Nasal Cannula 2 02/19/17 08:11 99.0 93 18 125/69 (87) 100 Nasal Cannula 3 I/O 02/19/17 02/19/17 02/19/17 02/20/17 02/20/17 02/20/17 07:00 15:00 23:00 07:00 15:00 23:00 Intake Total 0 ml 500 ml 480 ml 480 ml Output Total 450 ml 50 ml Balance -450 ml 450 ml 480 ml 480 ml Intake Oral 0 ml 480 ml 480 ml Other 500 ml Output Urine Total 400 ml Drainage Total 50 ml Estimated Blood Loss 50 ml # Voids 3 2 # Bowel Movements 0 0 0 Result Diagram: 02/18/17 0653 02/18/17 0653 Imaging Last 72 hours Impressions Foot X-Ray 02/12/17 0000 Signed Impressions: Service Date/Time: January 08:26 - CONCLUSION: Good position and alignment on this postoperative study. Paxton Hayes MD Objective Remarks RLE: +short leg splint. intact. NVI. +vac. good seal. harvest site dressing clean and dry. Assessment & Plan Assessment and Plan 1) Previous intramedullary shilpi fixation of right femur and right medial malleolus 2) Severely comminuted calcaneus with subtalar screw fixation and debridement of necrosis skin due to traumatic open injury over medial ankle with wound VAC application - POD 8 3) STSG of right Calcaneus - POD 1 -NWB RLE -maintain splint at all times -maintain vac. 100mmHg. continuous -dressing changes of harvest site. change ABD only. leave xeroform in place -plan for DC of vac on thursday and eventual DC then. Kishan Palafox Feb 20, 2017 06:53
[2017-02-20 07:31] VITALS: BP 115/59; PULSE 86; RESP 18; TEMP 96.6; O2SAT 95
[2017-02-20] MEDS: DOCUSATE SODIUM 50 MG/SENNA 8.6 MG TAB PO SCH (08:50)
[2017-02-20] MEDS: ENOXAPARIN SODIUM 40 MG/0.4 ML SYRINGE SQ SCH (08:51)
[2017-02-20 11:41] VITALS: BP 104/52; PULSE 72; RESP 18; TEMP 98.2; O2SAT 94
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
[2017-02-20 15:24] VITALS: BP 124/69; PULSE 80; RESP 19; TEMP 98.6; O2SAT 98
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
[2017-02-20] MEDS: LEVOFLOXACIN 750 MG PREMIX INJ 150 ML IV SCH (16:51)
[2017-02-20] MEDS: DAPTOmycin INJ 800 MG in SODIUM CHLORIDE 0.9% INJ 100 ML IV SCH (18:04)
[2017-02-20 19:09] VITALS: BP 117/61; PULSE 76; RESP 18; TEMP 97.5; O2SAT 99
[2017-02-20] MEDS: MELATONIN 5 MG TAB PO SCH (21:00)
[2017-02-20 23:29] VITALS: BP 109/53; PULSE 79; RESP 18; TEMP 97.3; O2SAT 98
[2017-02-21] MEDS: oxyCODONE/ACETAMINOPHEN 10 MG/325 MG TAB PO PRN ×6 (01:09→23:09)
[2017-02-21] MEDS: HYDROmorphone HCL PF 2 MG/ML VIAL IV PRN ×5 (02:10→20:14)
[2017-02-21] MEDS ORDERED: BISACODYL 10 MG SUPP RECTAL PRN (04:00)
[2017-02-21] MEDS: diphenhydrAMINE HCL 25 MG CAP PO PRN ×3 (06:03→20:12)
--- NOTE | 2017-02-21 06:59 | PD.ORT.PN ---
Subjective Subjective Remarks POD 9 s/p I&D with orif right calcaneus and vac application POD 2 s/p STSG right calcaneus doing well. no complaints. reports feels good and happy with progress Objective Vitals Vital Signs Date Time Temp Pulse Resp B/P (MAP) Pulse Ox O2 Delivery O2 Flow Rate FiO2 02/20/17 23:29 97.3 79 18 109/53 (71) 98 02/20/17 20:55 Room Air 02/20/17 19:09 97.5 76 18 117/61 (79) 99 02/20/17 15:24 98.6 80 19 124/69 (87) 98 02/20/17 11:41 98.2 72 18 104/52 (69) 94 02/20/17 07:31 96.6 86 18 115/59 (77) 95 I/O 02/20/17 02/20/17 02/20/17 02/21/17 02/21/17 02/21/17 07:00 15:00 23:00 07:00 15:00 23:00 Intake Total 480 ml 680 ml 480 ml 360 ml Balance 480 ml 680 ml 480 ml 360 ml Intake Oral 480 ml 680 ml 480 ml 360 ml # Voids 2 2 4 2 # Bowel Movements 0 0 0 0 Result Diagram: 02/18/17 0653 02/18/17 0653 Imaging Last 72 hours Impressions Foot X-Ray 02/12/17 0000 Signed Impressions: Service Date/Time: January 08:26 - CONCLUSION: Good position and alignment on this postoperative study. Paxtno Hayes MD Objective Remarks RLE: +short leg splint. intact. NVI. +vac. good seal. harvest site dressing clean and dry. Assessment & Plan Assessment and Plan 1) Previous intramedullary shilpi fixation of right femur and right medial malleolus 2) Severely comminuted calcaneus with subtalar screw fixation and debridement of necrosis skin due to traumatic open injury over medial ankle with wound VAC application - POD 9 3) STSG of right Calcaneus - POD 2 -NWB RLE -maintain splint at all times -maintain vac. 100mmHg. continuous -dressing changes of harvest site. change ABD only. leave xeroform in place -plan for DC of vac on thursday and eventual DC then. Kishan Palafox Feb 21, 2017 06:59
[2017-02-21 08:00] VITALS: BP 118/59; PULSE 75; RESP 18; TEMP 96.8; O2SAT 98
[2017-02-21] MEDS: DOCUSATE SODIUM 50 MG/SENNA 8.6 MG TAB PO SCH (08:54)
[2017-02-21] MEDS: ENOXAPARIN SODIUM 40 MG/0.4 ML SYRINGE SQ SCH (08:54)
[2017-02-21] MEDS: MAGNESIUM HYDROXIDE SUSP 30 ML CUP PO SCH ×2 (08:54→21:00)
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
[2017-02-21] MEDS: CALAMINE LOTION 180 APPLIC/180 ML BTL TOPICAL PRN (12:16)
[2017-02-21 14:54] VITALS: BP 124/68; PULSE 106
[2017-02-21] MEDS: LEVOFLOXACIN 750 MG PREMIX INJ 150 ML IV SCH (15:08)
[2017-02-21 16:00] VITALS: BP 105/60; PULSE 84; RESP 18; TEMP 95.7; O2SAT 98
[2017-02-21] MEDS: DAPTOmycin INJ 800 MG in SODIUM CHLORIDE 0.9% INJ 100 ML IV SCH (16:49)
[2017-02-21 19:15] VITALS: BP 117/61; PULSE 89; RESP 18; TEMP 98.7; O2SAT 100
[2017-02-21] MEDS: MELATONIN 5 MG TAB PO SCH (21:00)
[2017-02-22] VITALS: BP 126/71; PULSE 87; RESP 18; TEMP 97.7; O2SAT 99
[2017-02-22] MEDS: HYDROmorphone HCL PF 2 MG/ML VIAL IV PRN ×4 (00:13→18:46)
[2017-02-22] MEDS: diphenhydrAMINE HCL 25 MG CAP PO PRN (02:07)
[2017-02-22] MEDS: oxyCODONE/ACETAMINOPHEN 10 MG/325 MG TAB PO PRN ×4 (03:12→21:35)
--- NOTE | 2017-02-22 06:44 | PD.ORT.PN ---
Subjective Subjective Remarks POD 10 s/p I&D with orif right calcaneus and vac application POD 3 s/p STSG right calcaneus doing well. no complaints. reports feels good and happy with progress Objective Vitals Vital Signs Date Time Temp Pulse Resp B/P (MAP) Pulse Ox O2 Delivery O2 Flow Rate FiO2 02/22/17 00:00 97.7 87 18 126/71 (89) 99 02/21/17 19:15 98.7 89 18 117/61 (79) 100 02/21/17 16:00 95.7 84 18 105/60 (75) 98 02/21/17 14:54 106 124/68 (86) 02/21/17 11:20 Room Air 02/21/17 08:00 96.8 75 18 118/59 (78) 98 I/O 02/21/17 02/21/17 02/21/17 02/22/17 02/22/17 02/22/17 07:00 15:00 23:00 07:00 15:00 23:00 Intake Total 360 ml 1200 ml 730 ml 240 ml Output Total 0 ml Balance 360 ml 1200 ml 730 ml 240 ml Intake Oral 360 ml 1200 ml 480 ml 240 ml IV Total 250 ml Drainage Total 0 ml # Voids 2 5 4 2 # Bowel Movements 0 0 0 Result Diagram: 02/18/17 0653 02/18/17 0653 Imaging Last 72 hours Impressions Foot X-Ray 02/12/17 0000 Signed Impressions: Service Date/Time: January 08:26 - CONCLUSION: Good position and alignment on this postoperative study. Paxton Hayes MD Objective Remarks RLE: +short leg splint. intact. NVI. +vac. good seal. harvest site dressing clean and dry. Assessment & Plan Assessment and Plan 1) Previous intramedullary shilpi fixation of right femur and right medial malleolus 2) Severely comminuted calcaneus with subtalar screw fixation and debridement of necrosis skin due to traumatic open injury over medial ankle with wound VAC application - POD 10 3) STSG of right Calcaneus - POD 3 -NWB RLE -maintain splint at all times -maintain vac. 100mmHg. continuous -dressing changes of harvest site. change ABD only. leave xeroform in place -plan for DC of vac on thursday and eventual DC then. Kishan Palafox Feb 22, 2017 06:44
[2017-02-22] MEDS ORDERED: HYDR-3583 PO (06:45)
[2017-02-22] MEDS: DOCUSATE SODIUM 50 MG/SENNA 8.6 MG TAB PO SCH (07:44)
[2017-02-22] MEDS: MAGNESIUM HYDROXIDE SUSP 30 ML CUP PO SCH ×2 (07:44→21:00)
[2017-02-22] MEDS: ENOXAPARIN SODIUM 40 MG/0.4 ML SYRINGE SQ SCH (07:44)
[2017-02-22 08:00] VITALS: BP 107/59; PULSE 78; RESP 18; TEMP 97.8; O2SAT 97
[2017-02-22] MEDS ORDERED: diphenhydrAMINE HCL 50 MG CAP PO PRN (09:15)
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
[2017-02-22] MEDS: LORazepam 1 MG TAB PO PRN (11:27)
[2017-02-22 12:00] VITALS: BP 110/67; PULSE 90; RESP 18; TEMP 96.9; O2SAT 98
[2017-02-22] MEDS: LEVOFLOXACIN 750 MG PREMIX INJ 150 ML IV SCH (14:49)
[2017-02-22 16:00] VITALS: BP 117/57; PULSE 98; RESP 18; TEMP 97.5; O2SAT 98
[2017-02-22] MEDS: DAPTOmycin INJ 800 MG in SODIUM CHLORIDE 0.9% INJ 100 ML IV SCH (16:50)
[2017-02-22 19:27] VITALS: BP 118/67; PULSE 100; RESP 18; TEMP 97; O2SAT 99
[2017-02-22] MEDS: MELATONIN 5 MG TAB PO SCH (21:31)
[2017-02-22 23:24] VITALS: BP 114/68; PULSE 98; RESP 18; TEMP 97.9; O2SAT 97
[2017-02-23] MEDS: HYDROmorphone HCL PF 2 MG/ML VIAL IV PRN ×5 (00:36→22:21)
[2017-02-23] MEDS: LORazepam 1 MG TAB PO PRN (00:36)
[2017-02-23] MEDS: diphenhydrAMINE HCL 25 MG CAP PO PRN ×4 (04:10→23:07)
[2017-02-23] MEDS: oxyCODONE/ACETAMINOPHEN 10 MG/325 MG TAB PO PRN ×4 (04:10→20:25)
--- NOTE | 2017-02-23 06:40 | PD.ORT.PN ---
Subjective Subjective Remarks POD 11 s/p I&D with orif right calcaneus and vac application POD 4 s/p STSG right calcaneus doing well. no complaints. reports feels good and happy with progress Objective Vitals Vital Signs Date Time Temp Pulse Resp B/P (MAP) Pulse Ox O2 Delivery O2 Flow Rate FiO2 02/22/17 23:24 97.9 98 18 114/68 (83) 97 02/22/17 19:27 97.0 100 18 118/67 (84) 99 02/22/17 16:00 97.5 98 18 117/57 (77) 98 02/22/17 12:00 96.9 90 18 110/67 (81) 98 02/22/17 08:00 97.8 78 18 107/59 (75) 97 02/22/17 07:44 Room Air I/O 02/22/17 02/22/17 02/22/17 02/23/17 02/23/17 02/23/17 07:00 15:00 23:00 07:00 15:00 23:00 Intake Total 240 ml 720 ml 970 ml 480 ml Balance 240 ml 720 ml 970 ml 480 ml Intake Oral 240 ml 720 ml 720 ml 480 ml IV Total 250 ml # Voids 2 3 4 3 # Bowel Movements 0 1 0 Imaging Last 72 hours Impressions Foot X-Ray 02/12/17 0000 Signed Impressions: Service Date/Time: January 08:26 - CONCLUSION: Good position and alignment on this postoperative study. Paxton Hayes MD Objective Remarks RLE: +short leg splint. intact. NVI. +vac. good seal. harvest site dressing clean and dry. Assessment & Plan Assessment and Plan 1) Previous intramedullary shilpi fixation of right femur and right medial malleolus 2) Severely comminuted calcaneus with subtalar screw fixation and debridement of necrosis skin due to traumatic open injury over medial ankle with wound VAC application - POD 11 3) STSG of right Calcaneus - POD 4 -NWB RLE -maintain splint at all times -maintain vac. 100mmHg. continuous -dressing changes of harvest site. change ABD only. leave xeroform in place -plan for DC of vac on thursday and eventual DC then. -will plan for DC home tomorrow after vac removed -will need Infectious dz to arrange home Abx as patient is still on IV Abx Kishan Palafox Feb 23, 2017 06:40
[2017-02-23 07:59] VITALS: BP 126/67; PULSE 82; RESP 18; TEMP 96.4; O2SAT 95
[2017-02-23] MEDS: MAGNESIUM HYDROXIDE SUSP 30 ML CUP PO SCH ×2 (09:00→20:25)
[2017-02-23] MEDS: DOCUSATE SODIUM 50 MG/SENNA 8.6 MG TAB PO SCH (09:06)
[2017-02-23] MEDS: ENOXAPARIN SODIUM 40 MG/0.4 ML SYRINGE SQ SCH (09:06)
[2017-02-23 12:00] VITALS: BP 121/59; PULSE 94; RESP 18; TEMP 95.8; O2SAT 94
--- NOTE | 2017-02-23 13:42 | HHI.IDPN ---
Subjective Subjective Remarks doing ok rash resolved except for small area on L forearm no fever tolerates current abx OK Antibiotics levaquin daptomycin Allergies: Coded Allergies: hydralazine (Verified Allergy, Severe, Tachycardia, 02/18/17) morphine (Verified Allergy, Severe, Rash, 02/12/17) cefazolin (Verified Allergy, Unknown, Rash, 02/16/17) gentamicin (Verified Allergy, Unknown, Rash, 02/16/17) vancomycin (Verified Allergy, Unknown, Rash, 02/16/17) hydroxyzine (Verified Adverse Reaction, Unknown, 02/18/17) chills Objective . Vital Signs Date Time Temp Pulse Resp B/P (MAP) Pulse Ox O2 Delivery O2 Flow Rate FiO2 02/23/17 12:00 95.8 94 18 121/59 (79) 94 02/23/17 11:35 16 02/23/17 09:14 Room Air 2.00 21 02/23/17 07:59 96.4 82 18 126/67 (86) 95 02/22/17 23:24 97.9 98 18 114/68 (83) 97 02/22/17 19:27 97.0 100 18 118/67 (84) 99 02/22/17 16:00 97.5 98 18 117/57 (77) 98 Imaging Last Impressions Foot X-Ray 02/12/17 0000 Signed Impressions: Service Date/Time: January 08:26 - CONCLUSION: Good position and alignment on this postoperative study. Paxton Hayes MD Physical Exam CONSTITUTIONAL/GENERAL: This is an adequately nourished patient, in no apparent distress. TUBES/LINES/DRAINS: SKIN: No jaundice Skin temperature appropriate. Not diaphoretic. Resolved macular papular rash except for L forearm ENT: Hearing grossly normal. CARDIOVASCULAR: Regular rate and rhythm without murmurs, gallops, or rubs. RESPIRATORY/CHEST: Symmetric, unlabored respirations. Clear to auscultation. GASTROINTESTINAL: Abdomen soft, non-tender, nondistended. No hepato-splenomegaly , or palpable masses. No guarding. Bowel sounds present. MUSCULOSKELETAL: Extremities without clubbing, cyanosis, or edema. R foot cast in place, VAC with serosang dc Dressing in place over R thigh donor site - intact NEUROLOGICAL: Awake and alert. Moves all extremities. Assessment & Plan Remarks Comminuted open right calcaneus fracture Open wound right foot from open calcaneus fracture, infected - polimicrobial olamide ANtibiotic allergic reactions: impossible to tell if it was cefazolin or vancomycin REC's: cont Levaquin, daptomycin Other option: Ertapenem instead of levaquine + zyvox instead of daptomycin leslie riggins mngr OPAT Noreen Kwong MD Feb 23, 2017 13:42
--- NOTE | 2017-02-23 13:51 | HHI.FF ---
Infusion Therapy Location of Infusion Therapy: [facility] IV Infusion Order Patient Information Patient Weight 93.3 kg Diagnosis: Coded Allergies: hydralazine (Verified Allergy, Severe, Tachycardia, 02/18/17) morphine (Verified Allergy, Severe, Rash, 02/12/17) cefazolin (Verified Allergy, Unknown, Rash, 02/16/17) gentamicin (Verified Allergy, Unknown, Rash, 02/16/17) vancomycin (Verified Allergy, Unknown, Rash, 02/16/17) hydroxyzine (Verified Adverse Reaction, Unknown, 02/18/17) chills Administer Medication Daptomycin q 24 hours 800 mg IV Start Treatment: Feb 23, 2017 Stop Treatment: Apr 02, 2017 Additional Information Venous access: PICC Line Additional Instructions [x] Peripheral flush and dressing changes per protocol [x] 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 [] May leave port accessed during therapy. [] May leave peripheral site accessed for duration of therapy. [x] If patient has SOB or respiratory distress, check oxygen saturation. If less than 90% or clinical signs of respiratory distress, administer oxygen at 2 L/min. via nasal cannula and notify physician. [x] Anaphylaxis/Reaction orders: * Stop infusion. * Keep IV line open with saline flush. * Notify physician. * Monitor vital signs every 15 minutes until symptoms resolve. * Check Oxygen saturation; Oxygen at 2 L/min. via nasal cannula if less than 90% or clinical signs of respiratory distress. * Administer diphenhydramine (Benadryl) 25 mg IV STAT, (unless patient has received as pre-med). May repeat once, if necessary. * Solu-Cortef 250 mg IVP over 30-60 seconds, use 100 mg vials for each dissolution. * Epinephrine (1mg/1 ml) 0.3 mg subcutaneously or IVP now with any signs of respiratory distress. * Check with physician for new additional pre-med orders if patient is re- challenged or re-treated. [x] May remove PICC line when treatment complete, after confirming with Physician. [x] If the patient is admitted to the hospital, the ED, or transferred via [facility] , complete transfer form including medication reconciliation order sheet. Laboratory Tests Weekly Labs: CBC w/diff, Creatinine, CRP, SED Rate, Serum CK Levels Noreen No MD Feb 23, 2017 13:51
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
[2017-02-23] MEDS: LEVOFLOXACIN 750 MG PREMIX INJ 150 ML IV SCH (15:23)
[2017-02-23 16:00] VITALS: BP 114/59; PULSE 77; RESP 18; TEMP 96; O2SAT 96
[2017-02-23] MEDS: DAPTOmycin INJ 800 MG in SODIUM CHLORIDE 0.9% INJ 100 ML IV SCH (17:02)
--- NOTE | 2017-02-23 18:37 | RADRPT ---
EXAM DATE/TIME: 02/23/2017 18:04 CORRECTION Corrected on: February 24, 2017; fixed date to Feb 23 from [facility] COMPARISON: No previous studies available for comparison. INDICATIONS : Post PICC line placement MEDICAL HISTORY : None. SURGICAL HISTORY : None. ENCOUNTER: Initial ACUITY: 1 day PAIN SCORE: 0/10 LOCATION: chest FINDINGS: A single view of the chest demonstrates the lungs to be symmetrically aerated without evidence of mas s, infiltrate or effusion. The cardiomediastinal contours are unremarkable. Osseous structures are intact. A right-sided PICC line is in place with the tip projected over the superior vena cava. There is no evidence of pneumothorax. CONCLUSION: 1. Right-sided PICC line in place. 2. No acute cardiopulmonary disease. Jt Coronado MD on February 23, 2017 at 18:35 Board Certified Radiologist. This report was verified electronically.
[2017-02-23 20:10] VITALS: BP 123/63; PULSE 86; RESP 17; TEMP 98.5; O2SAT 99
[2017-02-23] MEDS: MELATONIN 5 MG TAB PO SCH (20:25)
[2017-02-24 00:25] VITALS: BP 106/59; PULSE 97; RESP 18; TEMP 98.6; O2SAT 98
[2017-02-24] MEDS: oxyCODONE/ACETAMINOPHEN 10 MG/325 MG TAB PO PRN ×4 (00:31→14:15)
[2017-02-24] MEDS: HYDROmorphone HCL PF 2 MG/ML VIAL IV PRN (02:00)
[2017-02-24] MEDS: diphenhydrAMINE HCL 25 MG CAP PO PRN (06:29)
--- NOTE | 2017-02-24 06:57 | PD.ORT.PN ---
Subjective Subjective Remarks Resting comfortably with no new complaints Objective Vitals Vital Signs Date Time Temp Pulse Resp B/P (MAP) Pulse Ox O2 Delivery O2 Flow Rate FiO2 02/24/17 00:25 98.6 97 18 106/59 (75) 98 02/23/17 20:10 98.5 86 17 123/63 (83) 99 02/23/17 16:00 96.0 77 18 114/59 (77) 96 02/23/17 15:53 16 02/23/17 14:25 16 02/23/17 12:00 95.8 94 18 121/59 (79) 94 02/23/17 09:14 Room Air 2.00 21 02/23/17 07:59 96.4 82 18 126/67 (86) 95 I/O 02/23/17 02/23/17 02/23/17 02/24/17 02/24/17 02/24/17 07:00 15:00 23:00 07:00 15:00 23:00 Intake Total 480 ml 600 ml 970 ml Output Total 500 ml Balance 480 ml 600 ml 470 ml Intake Oral 480 ml 600 ml 720 ml IV Total 250 ml Output Urine Total 500 ml Drainage Total 0 ml # Voids 3 4 # Bowel Movements 0 0 Imaging Last 72 hours Impressions Foot X-Ray 02/12/17 0000 Signed Impressions: Service Date/Time: January 08:26 - CONCLUSION: Good position and alignment on this postoperative study. Paxton Hayes MD Objective Remarks RLE: +short leg splint. intact. NVI. +vac. good seal. harvest site dressing clean and dry. Wound VAC taken down showing split-thickness skin graft healthy with good bleeding and granulation Assessment & Plan Assessment and Plan 1) Previous intramedullary shilpi fixation of right femur and right medial malleolus 2) Severely comminuted calcaneus with subtalar screw fixation and debridement of necrosis skin due to traumatic open injury over medial ankle with wound VAC application - POD 12 3) STSG of right Calcaneus - POD 5 -NWB RLE -Orthotec to reapply Hicks splint - maintain splint at all times -Discontinue wound VAC -dressing changes of harvest site. change ABD only. leave xeroform in place -DC to home today when antibiotics arranged Follow-up with Dr. Hicks or PA in 1 week -will need Infectious dz to arrange home Abx as patient is still on IV Abx Jt Reza Jr. Feb 24, 2017 06:57
--- NOTE | 2017-02-24 07:01 | HHI.FF ---
Face to Face Verification Diagnosis: (1) Calcaneus fracture, right Physical Therapy Safety evaluation Right LE Weight Bearing: Non WB Nursing RN Days per Week: 7 Nursing: Other (PICC online health and fitness coach and infusion) Dressing Changes: Do not change dressing I have seen patient Reynaldo Mason on 02/24/17. My clinical findings support the need for the requested home health care services because: Limited ability to care for self I certify that my clinical findings support that this patient is homebound because: Unsteady gait/balance Jt Reza Jr. Feb 24, 2017 07:01
--- NOTE | 2017-02-24 07:01 | HHI.FF ---
Face to Face Verification Diagnosis: (1) Calcaneus fracture, right Physical Therapy Safety evaluation Right LE Weight Bearing: Non WB Nursing RN Days per Week: 7 Nursing: Other (PICC airline captain and infusion) Dressing Changes: Do not change dressing I have seen patient Reynaldo Mason on 02/24/17. My clinical findings support the need for the requested home health care services because: Limited ability to care for self I certify that my clinical findings support that this patient is homebound because: Unsteady gait/balance Jt Reza Jr. Feb 24, 2017 07:01
--- NOTE | 2017-02-24 07:01 | HHI.FF ---
Face to Face Verification Diagnosis: (1) Calcaneus fracture, right Physical Therapy Safety evaluation Right LE Weight Bearing: Non WB Nursing RN Days per Week: 7 Nursing: Other (PICC line installer and infusion) Dressing Changes: Do not change dressing I have seen patient Reynaldo Mason on 02/24/17. My clinical findings support the need for the requested home health care services because: Limited ability to care for self I certify that my clinical findings support that this patient is homebound because: Unsteady gait/balance Jt Reza Jr. Feb 24, 2017 07:01
[2017-02-24 08:00] VITALS: BP 124/68; PULSE 81; RESP 18; TEMP 97; O2SAT 99
[2017-02-24] MEDS: ENOXAPARIN SODIUM 40 MG/0.4 ML SYRINGE SQ SCH (08:15)
[2017-02-24] MEDS: DOCUSATE SODIUM 50 MG/SENNA 8.6 MG TAB PO SCH (08:15)
[2017-02-24] MEDS: MAGNESIUM HYDROXIDE SUSP 30 ML CUP PO SCH (08:15)
[2017-02-24] MEDS: LORazepam 1 MG TAB PO PRN ×2 (08:15→16:42)
[2017-02-24 12:00] VITALS: BP 129/72; PULSE 84; RESP 16; TEMP 96.7; O2SAT 97
[2017-02-24] MEDS ORDERED: LEVA750T9 PO (12:07)
[2017-02-24] MEDS ORDERED: DAPT250I IV (12:07)
--- NOTE | 2017-02-24 13:27 | HHI.PR ---
Addendum to Inpatient Note Additional Information dw Dr Meier [place] to dc home OPAT forms filled out DC abx include: daptomycin and Levaquine x 6 weeks total fu with Noreen Shanks MD Feb 24, 2017 13:27
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
[2017-02-24 14:40] LABS: AUTOMATED NEUTROPHIL # 4.3 TH/MM3 (1.8-7.7); BASOPHIL % 0.7 % (0.0-2.0); EOSINOPHIL # 0.1 TH/MM3 (0-0.4); EOSINOPHIL % 1.7 % (0.0-4.0); HEMATOCRIT 32.8 % (39.0-51.0); HEMOGLOBIN 10.8 GM/DL (13.0-17.0); LYMPH % 14.7 % (9.0-44.0); LYMPHOCYTE # 0.8 TH/MM3 (1.0-4.8); MEAN CELL VOLUME 87.2 FL (80.0-100.0); MEAN CORPUSCULAR HEMOGLOBIN 28.6 PG (27.0-34.0); MEAN CORPUSCULAR HGB CONC 32.8 % (32.0-36.0); MEAN PLATELET VOLUME 7.4 FL (7.0-11.0); MONO % 6.6 % (0.0-8.0); MONOCYTE # 0.4 TH/MM3 (0-0.9); NEUT % 76.3 % (16.0-70.0); PLATELET COUNT 356 TH/MM3 (150-450); RED BLOOD COUNT 3.77 MIL/MM3 (4.50-5.90); RED CELL DISTRIBUTION WIDTH 15.9 % (11.6-17.2); WHITE BLOOD COUNT 5.6 TH/MM3 (4.0-11.0)
[2017-02-24] MEDS: LEVOFLOXACIN 750 MG PREMIX INJ 150 ML IV SCH (15:02)
[2017-02-24 15:03] LABS: C-REACTIVE PROTEIN 4.05 MG/DL (0.00-0.30); CREATININE 0.99 MG/DL (0.60-1.30)
[2017-02-24 16:00] VITALS: BP 124/66; PULSE 85; RESP 16; TEMP 97.6; O2SAT 100
[2017-02-24] MEDS: DAPTOmycin INJ 800 MG in SODIUM CHLORIDE 0.9% INJ 100 ML IV SCH (16:40)
== END 2017-02-24 17:41 | disposition home health service (06) | DRG 465 ==
LOC: HSDI 05:23 → N06B 13:35
PROVIDERS: ADMIT Orthopaedic Surgery Orthopaedic Trauma; ATTEND Orthopaedic Surgery Orthopaedic Trauma
PROC: 0QSL04Z Reposition Right Tarsal with Internal Fixation Device, Open Approach (ICD-10-PCS; 2017-02-12)
PROC: 0HRMX74 Replacement of Right Foot Skin with Autologous Tissue Substitute, Partial Thickness, External Approach (ICD-10-PCS; 2017-02-19)
PROC: 0HBHXZZ Excision of Right Upper Leg Skin, External Approach (ICD-10-PCS; 2017-02-19)
PROC: 0JBQ0ZZ Excision of Right Foot Subcutaneous Tissue and Fascia, Open Approach (ICD-10-PCS; principal; 2017-02-19 07:06)
DX: S92.041 Displaced other fracture of tuberosity of right calcaneus (principal); L08.89 Other specified local infections of the skin and subcutaneous tissue; L27.1 Localized skin eruption due to drugs and medicaments taken internally; G47.00 Insomnia, unspecified; T36.95XA Adverse effect of unspecified systemic antibiotic, initial encounter; B95.2 Enterococcus as the cause of diseases classified elsewhere; Z87.891 Personal history of nicotine dependence
CPT/HCPCS: 36569; 71010; 73650; 76000; 76937; 80048; 82550; 82565; 83735; 85025; 85610; 85652; 85730; 86140; 87015; 87070; 87077; 87102; 87116; 87186; 87205; 87206; 94150; C1713; C1769; J0131; J0690; J0878; J1170; J1580; J1642; J1650; J1956; J2175; J2250; J2405; J2710; J3010; J3370; J7050; J7120; Q0163; Q0177

== ENCOUNTER 2017-08-17 05:52 | Inpatient (IN) | payer MEDICAID ==
[~2017-08-17] VITALS: Ht 177.8 cm; Wt 90.3 kg
[~2017-08-17 05:52] MED LIST changes: +CALC1TAB12 PO; +CODCAP6 PO; +GEMF600T PO; +PERC5TAB12 PO; -PYRI200T4 PO; +SENN1TAB PO; -SULF1TAB47 PO; -Z.0.NO CURRENT MEDS
[2017-08-17] MEDS ORDERED: ACETAMINOPHEN 1000 MG/100 ML 100 ML IV ONE (06:26)
[2017-08-17] MEDS ORDERED: CHLORHEXIDINE GLUCONATE 2 % 1 PACK (2 CLOTHS) TOPICAL PRN (06:30)
[2017-08-17] MEDS ORDERED: SODIUM CHLORID 0.9% 500 ML IV PRN (06:30)
[2017-08-17] MEDS ORDERED: LACTATED RINGER'S 1000 ML IV PRN (06:30)
[2017-08-17] MEDS ORDERED: POVIDONE IODINE 5% (ANTISEPSIS KIT) 4 APPLICATIONS EACH NARE PRN (06:30)
[2017-08-17] MEDS ORDERED: METOPROLOL TARTRATE 25 MG TAB PO PRN (06:30)
[2017-08-17] MEDS ORDERED: CLINDAMYCIN PHOS 900 MG/6 ML VIAL ONE (07:12)
[2017-08-17] MEDS ORDERED: BUPIVACAINE HCL PF 0.25% 30 ML VIAL ONE (08:22)
[2017-08-17] MEDS ORDERED: diphenhydrAMINE HCL 25 MG CAP PO PRN (09:15)
[2017-08-17] MEDS ORDERED: HYDROmorphone HCL PF 2 MG/ML VIAL IV PUSH PRN (09:15)
[2017-08-17] MEDS ORDERED: ONDANSETRON HCL 4 MG/2 ML VIAL IVP PRN (09:15)
[2017-08-17] MEDS ORDERED: NALOXONE HCL 0.4 MG/ML AMP IV PUSH PRN (09:15)
[2017-08-17] MEDS ORDERED: diphenhydrAMINE HCL 50 MG/ML VIAL IV PUSH PRN (09:15)
[2017-08-17] MEDS ORDERED: Post-op Orders (for Pharmacy) XX ONE (09:15)
--- NOTE | 2017-08-17 09:16 | PD.OP ---
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 My P.A. presence was necessary throughout this case for the manipulation and positioning of the surgical extremity. My P.A. was assisting me throughout the duration of this procedure. The skill set of a physician assistant speech language pathologist was medically necessary to complete this procedure. During the surgical case the rn neurosurgical was working at the back table and the physician assistant speech language pathologist was directly assisting me. Operation and Findings: Tourniquet time: 53 minutes at 250 mmHg Implants used: Synthes 6.5 cannulated screws Informed consent obtained, operative site was marked. The foot and ankle were seen and evaluated this morning. Soft tissue swelling had significantly improved and appeared to be ready for surgery. He was brought to the operating room and placed on the operating room table. He was given intravenous sedation, general endotracheal anesthesia. He was placed in the lateral decubitus position. Foot and leg were prepped with alcohol, followed by Hibiclens, draped in usual sterile fashion. A time out procedure was preformed. Antibiotics were held until cultures were obtained. The procedure began removal of deep hardware. 3 small incisions were made over the screw heads. The screws were identified under fluoroscopy. Using appropriate screwdrivers these screws were removed. The screws were swabbed for cultures. Next the subtalar joint was exposed with a 4 inch incision over the lateral aspect of the ankle and calcaneus. A full thickness flap was carefully elevated. Periosteum was elevated off the calcaneous. At this point the leg was elevated. The tourniquet was inflated. Attention was now turned to exposure of the calcaneus. The lateral wall was very displaced from previous fracture. At this point attention was turned to ostectomy of the lateral wall of the calcaneus. There was significant subfibular impingement. An osteotome was used to remove the lateral wall of the calcaneus to prevent further subfibular impingement. Rongour was used to remove extra bone around the subfibular region. Next attention was turned towards the subtalar joint. A half pin was placed into the tibia and into the calcaneus. A distractor was created and placed to help distract the subtalar joint. There was significant post traumatic arthritis of the joint. The remaining cartilage of the subtalar joint was debrided with the TPS bur. All visible cartilage was debrided. Additional tissue was obtained and sent for cultures from the subtalar joint. Antibiotics were now administered. There was significant fibrous tissue within the joint as well. This was also removed. Next attention was turned to iliac crest bone grafting. A 2 inch incision was made over the iliac crest. Subcutaneous tissue assist with Bovie. Fascia was elevated off the bone. Osteotomes were used to obtain a wedge shaped tricortical graft. Additional cancellus bone was obtained from the iliac crest. At this point the bone graft was placed into the subtalar joint. The joint was distracted to restore height of the calcaneus. The tricortical wedge graft was now placed into the subtalar joint. Additional cancellous bone was packed around the remaining area of the subtalar joint. Fluoroscopy revealed appropriate alignment of the subtalar joint. The distractor was now removed. At this point attention was turned towards hardware placement. 3 guidepins for the Synthes 6.5 cannulated screws were placed through the posterior tuberosity of the calcaneus into the body of the talus. Fluoroscopy confirmed appropriate guidepin placement. Screw lengths were measured. Cannulated drill was placed over the guide pins. Appropriate length screws were now placed. Good compression was obtained. K-wires were removed. Final fluoroscopy well-aligned fracture with well-placed hardware. Incision was thoroughly irrigated. Tourniquet was released. Hemostasis was confirmed. A drain was placed deep. Fascia layer was closed 0 Vicryl, the skin and subcutaneous tissue closed with 3 -0 nylon, in vertical mattress fashion. Sterile dressings were applied the patient was placed into a well molded padded splint. The patient was transferred to the Recovery Room in stable condition. Reynaldo Hicks MD Aug 17, 2017 09:16
[2017-08-17] MEDS ORDERED: DO NOT ADM ANY ANTICOAGULANT DRUGS PRN (09:36)
[2017-08-17] MEDS ORDERED: *MEPERIDINE 25 MG INJ VIAL PERIprocedural Use ONLY ONE (09:36)
[2017-08-17] MEDS ORDERED: HYDROmorphone HCL PF 0.5 MG/0.5 ML SYRINGE ONE ×3 (09:40→10:03)
[2017-08-17] MEDS ORDERED: MIDAZOLAM HCL 2 MG/2 ML VIAL ONE (09:41)
[2017-08-17] MEDS: LACTATED RINGER'S 1000 ML INJ 1,000 ML IV SCH ×2 (10:20→18:11)
[2017-08-17] MEDS: ACETAMINOPHEN/HYDROcodone 325 MG/10 MG TAB PO PRN ×5 (10:41→23:12)
[2017-08-17] MEDS ORDERED: GLYCOPYRROLATE 1 MG/5 ML SYRINGE IV PUSH ONE (12:00)
[2017-08-17] MEDS ORDERED: LIDOCAINE HCL 1% PF 5 ML SYRINGE OTHER ONE (12:00)
[2017-08-17] MEDS ORDERED: PROPOFOL 200 MG/20 ML AMP IV ONE (12:00)
[2017-08-17] MEDS ORDERED: ROCURONIUM INJ 50 MG/5 ML SYRINGE IV PUSH ONE (12:00)
[2017-08-17] MEDS ORDERED: NEOSTIGMINE 5 MG/5 ML SYRINGE IV PUSH ONE (12:00)
[2017-08-17] MEDS ORDERED: LACTATED RINGER'S 1000 ML INJ 1,000 ML IV ONE (12:00)
[2017-08-17] MEDS ORDERED: DEXAMETHASONE SOD PHOS 4 MG/ML VIAL IV ONE (12:00)
[2017-08-17] MEDS ORDERED: KETOROLAC TROMETHAMINE 30 MG/ML (IVP) VIAL IV PUSH ONE (12:00)
[2017-08-17] MEDS ORDERED: ONDANSETRON HCL 4 MG/2 ML VIAL IV ONE (12:00)
[2017-08-17 13:22] VITALS: O2SAT 98
[2017-08-17] MEDS: KETOROLAC TROMETHAMINE 30 MG/ML (IVP) VIAL IV PUSH SCH ×2 (13:22→23:13)
--- NOTE | 2017-08-17 13:32 | RADRPT ---
EXAM DATE/TIME: 08/17/2017 08:44 [facility] COMPARISON: HEEL RIGHT ([id number]), February 12, 2017, 8:26. INDICATIONS : Removal of hardware and revision of ORIF. MEDICAL HISTORY : Unobtainable. SURGICAL HISTORY : ORIF right calcaneous. ENCOUNTER: [facility] ACUITY: 4 - 6 months PAIN SCORE: Non-responsive. LOCATION: Right calcaneous. FINDINGS: Multiple views of the calcaneus were obtained using a matrix camera and demonstrate interval removal of the previously noted long surgical screws and placement of 3 lag type screws transfixing the calca neus and navicular bones. 2 additional stable echotexture there is are present in the medial malleolu s. Degenerative changes are noted in the hindfoot. There is poor bony detail. CONCLUSION: Status post revision of open ridgid internal fixation. Jt Coronado MD on August 17, 2017 at 13:28 Board Certified Radiologist. This report was verified electronically.
[2017-08-17] MEDS: diphenhydrAMINE HCL 25 MG CAP PO PRN ×2 (15:22→23:12)
[2017-08-17] MEDS: CLINDAMYCIN 900 MG/NS PREMIX 50 ML IV SCH ×2 (15:22→23:15)
[2017-08-17 15:48] VITALS: O2SAT 98
[2017-08-17 16:00] VITALS: BP 112/63; PULSE 65; RESP 16; TEMP 97.4; O2SAT 97
[2017-08-17 20:55] VITALS: BP 117/57; PULSE 67; RESP 16; TEMP 97.6; O2SAT 96
[2017-08-17 23:40] VITALS: BP 119/52; PULSE 68; RESP 16; TEMP 97.9; O2SAT 99
[2017-08-18] MEDS: ACETAMINOPHEN/HYDROcodone 325 MG/10 MG TAB PO PRN ×6 (02:12→21:25)
[2017-08-18 04:40] VITALS: BP 104/51; PULSE 71; RESP 16; TEMP 97.8; O2SAT 99
[2017-08-18] MEDS: LACTATED RINGER'S 1000 ML INJ 1,000 ML IV SCH (05:01)
[2017-08-18] MEDS: KETOROLAC TROMETHAMINE 30 MG/ML (IVP) VIAL IV PUSH SCH (05:55)
[2017-08-18 07:38] VITALS: BP 105/51; PULSE 61; RESP 18; TEMP 98.3; O2SAT 97
--- NOTE | 2017-08-18 09:24 | PD.ORT.PN ---
Subjective Subjective Remarks Pain controlled overnight. No new complaints Objective Vitals Vital Signs Date Time Temp Pulse Resp B/P (MAP) Pulse Ox O2 Delivery O2 Flow Rate FiO2 08/18/17 07:38 98.3 61 18 105/51 (69) 97 08/18/17 04:40 97.8 71 16 104/51 (68) 99 08/17/17 23:40 97.9 68 16 119/52 (74) 99 08/17/17 20:55 97.6 67 16 117/57 (77) 96 08/17/17 16:00 97.4 65 16 112/63 (79) 97 08/17/17 15:48 98 21 08/17/17 13:22 98 21 08/17/17 12:30 60 16 113/55 (74) 95 Room Air 08/17/17 11:40 16 08/17/17 11:30 61 14 123/59 (80) 97 Nasal Cannula 2 08/17/17 10:30 97.2 65 14 118/75 (89) 98 Nasal Cannula 2 08/17/17 10:15 60 12 113/72 (86) 93 Nasal Cannula 2 08/17/17 10:00 75 16 109/66 (80) 92 Room Air 08/17/17 09:45 75 18 122/78 (93) 95 Room Air 08/17/17 09:34 97.5 79 15 127/83 (98) 94 Room Air I/O 08/17/17 08/17/17 08/17/17 08/18/17 08/18/17 08/18/17 07:00 15:00 23:00 07:00 15:00 23:00 Intake Total 1100 ml 400 ml 530 ml Output Total 400 ml 715 ml 370 ml Balance 700 ml -315 ml 160 ml Intake Oral 400 ml 480 ml IV Total 50 ml Other 1100 ml Output Urine Total 350 ml 700 ml 350 ml Drainage Total 15 ml 20 ml Estimated Blood Loss 50 ml # Voids 1 # Bowel Movements 0 0 Imaging Last 72 hours Impressions Foot X-Ray 08/17/17 0000 Signed Impressions: Service Date/Time: Thursday, August 17, 2017 08:44 - CONCLUSION: Status post revision of open ridgid internal fixation. Jt Coronado MD Objective Remarks Right lower extremity: Clean dry dressings intact with drain in place. No pain with knee or ankle range of motion. 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 Jamia BAÑUELOS in 2 weeks Jt Reza Jr. Aug 18, 2017 09:24
[2017-08-18] MEDS ORDERED: HYDR-3583 PO (09:25)
[2017-08-18] MEDS ORDERED: CALCTAB19 PO (09:25)
[2017-08-18] MEDS: CLINDAMYCIN 900 MG/NS PREMIX 50 ML IV SCH ×2 (10:14→16:52)
[2017-08-18 11:54] VITALS: BP 116/56; PULSE 63; RESP 18; TEMP 98.8; O2SAT 97
[2017-08-18 15:31] VITALS: BP 123/64; PULSE 72; RESP 18; TEMP 98.2; O2SAT 97
[2017-08-18 20:55] VITALS: BP 114/75; PULSE 62; RESP 16; TEMP 98.2; O2SAT 97
[2017-08-19] VITALS: BP 126/68; PULSE 66; RESP 16; TEMP 98.5; O2SAT 100
[2017-08-19] MEDS: CLINDAMYCIN 900 MG/NS PREMIX 50 ML IV SCH ×2 (00:31→10:16)
[2017-08-19] MEDS: ACETAMINOPHEN/HYDROcodone 325 MG/10 MG TAB PO PRN ×6 (00:32→16:54)
[2017-08-19] MEDS: LACTATED RINGER'S 1000 ML INJ 1,000 ML IV SCH ×2 (00:49→11:01)
--- NOTE | 2017-08-19 06:58 | PD.ORT.PN ---
Subjective Subjective Remarks POD 2 s/p QUINTIN with subtalar revision fusion right ankle doing well. pain controlled. out of bed with walker Objective Vitals Vital Signs Date Time Temp Pulse Resp B/P (MAP) Pulse Ox O2 Delivery O2 Flow Rate FiO2 08/19/17 00:00 98.5 66 16 126/68 (87) 100 08/18/17 20:55 98.2 62 16 114/75 (88) 97 08/18/17 15:31 98.2 72 18 123/64 (83) 97 08/18/17 11:54 98.8 63 18 116/56 (76) 97 08/18/17 07:38 98.3 61 18 105/51 (69) 97 I/O 08/18/17 08/18/17 08/18/17 08/19/17 08/19/17 08/19/17 07:00 15:00 23:00 07:00 15:00 23:00 Intake Total 530 ml 480 ml 480 ml 720 ml Output Total 370 ml 300 ml 400 ml Balance 160 ml 180 ml 80 ml 720 ml Intake Oral 480 ml 480 ml 480 ml 720 ml IV Total 50 ml Output Urine Total 350 ml 300 ml 400 ml Drainage Total 20 ml # Voids 2 # Bowel Movements 0 0 Imaging Last 72 hours Impressions Foot X-Ray 08/17/17 0000 Signed Impressions: Service Date/Time: Thursday, August 17, 2017 08:44 - CONCLUSION: Status post revision of open ridgid internal fixation. Jt Coronado MD Objective Remarks Right lower extremity: Clean dry dressings intact with drain in place. No pain with knee or ankle range of motion. Dressings are intact over pelvis with mild drainage. 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 Jamia BAÑUELOS in 2 weeks Kisahn Palafox/First Akosua BAÑUELOS Aug 19, 2017 06:58
[2017-08-19 07:31] VITALS: BP 109/59; PULSE 70; RESP 18; TEMP 98.2; O2SAT 98
--- NOTE | 2017-08-19 09:32 | HHI.DS ---
Discharge Summary Admission Date Aug 17, 2017 at 05:52 Discharge Date: Aug 19, 2017 Admitting Diagnosis Right subtalar fusion nonunion Diagnosis: (1) Calcaneus fracture, right Diagnosis: Principal ICD Codes: S92.001A - Unspecified fracture of right calcaneus, initial encounter for closed fracture Procedures Removal of hardware with revision nonunion with bone grafting of right subtalar joint PE at Discharge Right lower extremity: Clean dry dressings intact with drain in place. No pain with knee or ankle range of motion. Dressings are intact over pelvis with mild drainage. drain removed at bedside Hospital Course Patient was admitted from outpatient basis for revision of the right subtalar fusion. He is undergone traumatic injury many months ago for attempted primary fusion was attempted. It failed. He tolerated procedure well and was admitted to [facility]. He was out of bed on postop day 1 and 2 with minimal discomfort. His cultures thus far have been negative. The drain was discontinued on postop day 2. He is fit for discharge home. He will remain nonweightbearing and maintain his splint at all times. He will follow-up with Dr. Sandoval or his PA in 2 weeks Pt Condition on Discharge: Good Discharge Disposition: Discharge Home Discharge Instructions Diet Instructions: As Tolerated, No Restrictions Activities You Can Perform: Non Weight Bearing Follow up Referrals: Orthopedics - 2 Weeks @ [facility] with Reynaldo Sandoval MD New Medications: Calcium Carbonate-Vitamin D (Calcium 600+D 200) 600-200 Mg-Unit Tab 1 TAB PO BID for Nutritional Supplement, #90 TAB 0 Refills Hydrocodone-Acetaminophen (Hydrocodone-Acetaminophen) 10-325 mg Tab 1 TAB PO Q4H PRN for PAIN, #60 TAB 0 Refills Continued Medications: Calcium Carbonate-Cholecalciferol (Calcium 500 +D) 500-400 Mg-Unit Tab 1 TAB PO BID for Calcium Supplement, TAB 0 Refills Gemfibrozil (Gemfibrozil) 600 Mg Tab 600 MG PO BIDAC, #60 TAB 0 Refills Take 30 minutes prior to breakfast and dinner. Om3/Dha/Epa/Cod Liver Oil/A/D3 (Cod Liver Oil Softgel) 240-1,000MG Capsule 2 CAP PO DAILY Sennosides-Docusate Sodium (Senna Plus 8.6-50 mg) 8.6 Mg-50 Mg Tab 1-2 TAB PO BID Discontinued Medications: Oxycodone-Acetaminophen (Percocet) 5-325 mg Tab 1 TAB PO Q4H PRN for PAIN, TAB 0 Refills Kishan Palafox/First Akosua BAÑUELOS Aug 19, 2017 09:32
[2017-08-19] MEDS: diphenhydrAMINE HCL 25 MG CAP PO PRN (10:18)
[2017-08-19 11:41] VITALS: BP 111/60; PULSE 67; RESP 18; TEMP 98.5; O2SAT 98
[2017-08-19 16:00] VITALS: BP 119/68; PULSE 72; RESP 18; TEMP 98.6; O2SAT 97
[2017-08-19 17:54] VITALS: RESP 18
== END 2017-08-19 19:31 | disposition home or self-care (01) | DRG 497 ==
LOC: HSDI 05:52 → N06A 12:45
PROVIDERS: ADMIT Orthopaedic Surgery Orthopaedic Trauma; ATTEND Orthopaedic Surgery Orthopaedic Trauma
PROC: 0QPL04Z Removal of Internal Fixation Device from Right Tarsal, Open Approach (ICD-10-PCS; 2017-08-17)
PROC: 0QB20ZZ Excision of Right Pelvic Bone, Open Approach (ICD-10-PCS; 2017-08-17)
PROC: 0SGH07Z Fusion of Right Tarsal Joint with Autologous Tissue Substitute, Open Approach (ICD-10-PCS; principal; 2017-08-17 07:09)
DX: M96.0 Pseudarthrosis after fusion or arthrodesis (principal); M12.571 Traumatic arthropathy, right ankle and foot; S92.001D Unspecified fracture of right calcaneus, subsequent encounter for fracture with routine healing; Y83.8 Other surgical procedures as the cause of abnormal reaction of the patient, or of later complication, without mention of misadventure at the time of the procedure
CPT/HCPCS: 73650; 76000; 87015; 87070; 87102; 87116; 87205; 87206; C1713; C1769; J0131; J1100; J1170; J1885; J2175; J2250; J2405; J2710; J3010; J7120